=== PATIENT | female | born 1985 | race Caucasian/White ===

== ENCOUNTER → 2017-08-14 20:53 | Outpatient (CLI) | payer OTHER, MEDICAID, SELFPAY ==
[2017-08-14 13:12] VITALS: BP 125/85; BMI 41.9
[2017-08-14 22:32] LABS: Chlamydia Trachomatis by PCR Negative (Negative); Neisserai gonorrhoeae by PCR Negative (Negative); Probe Check PASS; Sample Adequacy Control PASS; Specimen Processing Control PASS
== END ==
PROVIDERS: Visit Provider Nurse Practitioner Women's Health
DX: Z11.3 Encounter for screening for infections with a predominantly sexual mode of transmission (principal); Z12.4 Encounter for screening for malignant neoplasm of cervix
CPT/HCPCS: 87070; 87205; 87491; 87591

== ENCOUNTER → 2017-09-12 10:32 | Outpatient (CLI) | payer OTHER, MEDICAID, SELFPAY ==
[2017-09-12 12:14] LABS: Follicle Stimulating Hormone 3.2 mIU/mL
[2017-09-14 03:07] LABS: DHEA Sulfate 120.5 ug/dL (84.8-378.0); HCV Quant. RNA PCR HCV Not Detected IU/mL (.)
[2017-09-14 09:21] LABS: HSV 2 IgG < 0.91 index (0.00-0.90); Testosterone Free 2.4 pg/mL (0.0-4.2)
[2017-09-15 01:09] LABS: Rapid Plasmin Reagin (RPR) NONREACTIVE (NONREACTIVE)
[2017-09-16 12:47] LABS: 17-Hydroxyprogesterone 23 ng/dL (.)
== END ==
PROVIDERS: Family Provider Nurse Practitioner Family; PCP Nurse Practitioner Family; Visit Provider Nurse Practitioner Women's Health
DX: N91.1 Secondary amenorrhea (principal); Z11.3 Encounter for screening for infections with a predominantly sexual mode of transmission; L68.0 Hirsutism
CPT/HCPCS: 82627; 83001; 83498; 84402; 86592; 86695; 86696; 87522; 82626

== ENCOUNTER 2017-11-16 11:22 | Day surgery (SDC) | payer MEDICAID, SELFPAY ==
--- NOTE | 2017-11-16 | FALS_PTH ---
PATIENT: BARRINGTON BEYER [place] [facility] [id number] AGE/SX: 32/F ROOM: RE11/16/[address]: Dr. Keren Ruiz MD : 1985 BED: DIS: 11/16/2017 SPEC #: [id number] RECD: 11/16/17 15:05 STATUS: MARLEE RERashmi #: [id number] NANCY: 11/16/17 00:[address]: Keren Ruiz DEPT: SURGICAL PATHOLOGY RECD BY: Carlos Rey ENTERED: 11/16/17 15:07 SP TYPE: FALL TUBES OTHR DR: Teri Silvestre, CLARIBELC Tissues: A - Labium, NOS B - Fallopian tube Procedures: Surgery Specimen Level II Surgery Specimen Level IV HEADER OPERATION: Laparoscopic salpingectomy, labioplasty PRE-OP DIAGNOSIS: Sterilization request; labial hypertrophy TISSUE SUBMITTED: A ? Bilateral labial tissue, B ? Bilateral fallopian tubes MICROSCOPIC DIAGNOSIS A. Bilateral labial tissue, excision: Minimal hyperkeratosis. No evidence of dysplasia. B. Right and left fallopian tubes, bilateral salpingectomies: Two complete segments of fallopian tubes with no pathologic change. Benign paratubal cysts. AM:kye 11/17/17 MICROSCOPIC DESCRIPTION Slides are reviewed. GROSS DESCRIPTION A - Received in fixative is one container labeled with the patient's name and designated bilateral labial tissue. The specimen consists of four irregular fragments of pink-martinez skin with attached reddish-martinez soft tissue ranging in size from 0.5 to 8.5 cm in greatest dimension. Serial sections do not reveal mass lesions. Disc Jockey sections are submitted in two cassettes. B - Received is one container labeled with the patient's name and designated bilateral fallopian tubes. One fallopian tube measures 3 cm in length and 0.5 cm in average diameter and contains a smooth, glistening paratubal cyst measuring 1 cm in greatest dimension. No fimbrial end is present. The other fallopian tube measures 6 cm in length and 0.5 cm in average diameter and contains a fimbrial end. Disc Jockey sections are submitted in two cassettes as follows: 1 ? smaller fallopian tube segment with paratubal cyst, 2 - the other fallopian tube with fimbrial end. / AM:kye 11/16/17 TC:5 CPT: 94502 x2, 13093
--- NOTE | 2017-11-16 06:33 | PCM.HPOB.BLA ---
- Problem List (1) Labial hypertrophy Status: Acute (2) Sterilization Status: Acute History and Physical Date of Admission: 11/16/17 Intake Vital Signs 09/12/17 Body Mass Index (BMI) 41.9 09/12/17 Blood Pressure 131/92 09/12/17 Height 4 ft 11.5 in 09/12/17 Weight: 209 lb 6 oz 09/12/17 Body Mass Index (BMI) 41.5 Intake Visit Reasons: SURGICAL CONSULT Chief Complaint: Surgery Consult Elevator Supervisor Required: No Is patient in pain?: No Allergies No Known Allergies Allergy (Unverified 09/12/17 09:34) Medications diltiazem 30 mg tablet 30 mg PO Q8H 08/14/17 [History Confirmed 09/12/17] levothyroxine 50 mcg tablet PO 08/14/17 [History Confirmed 09/12/17] medroxyprogesterone 10 mg tablet 10 mg PO QDAY #10 tab 08/14/17 [Rx Confirmed 09/12/17] montelukast 10 mg tablet 10 mg PO QHS 08/14/17 [History Confirmed 09/12/17] omeprazole 20 mg capsule,delayed release 20 mg PO ONCE 08/14/17 [History Confirmed 09/12/17] sertraline 50 mg tablet 50 mg PO QDAY 09/12/17 [History Confirmed 09/12/17] Is last menstrual period known: Yes Last Menstral Period: 09/10/17 Post menopausal: No Patient : No : No PFSH Medical History Anxiety and depression (Acute) Drug addiction in remission (Acute) SVT (supraventricular tachycardia) (Acute) Thyroid disorder (Acute) Surgical History delivery delivered (Acute) Family History Father Cancer Melanoma Social History Smoking Status: Never smoker alcohol intake: never substance use type: does not use caffeine: Yes what type of physical activity do you participate in: none seatbelt use: always do you feel safe at home: Yes additional social history: [facility] SURGICAL CONSULT: Details: BARRINGTON BEYER is a 32 year old who presents for vulvar discomfort due to excess skin. This has worsened over the years. she admits some swelling and worsening when she is walking and more active and she would like it removed. she also co dyspareunia with the extra skin and also internal. Female Reproductive History Last Menstral Period: 09/10/17 Pregancy History 5 Elective abortions Hx Para 4 Spontaneous abortions Hx # Term Pregnancies Ectopic pregnancies Hx # Pregnancies Multiple births # of living children Past Pregnancies Del. Date Name GA/Weeks Outcome Route Bth Weight Gen Labor Lgth Anesthesia Del Locatn Provider FOB Unknown 2001 Rosales Unknown 2003 Zechariah Unknown 2005 [place] Unknown 2009 Mala BLANCHARD Const Constitutional: Denies poor appetite, headache(s), fever(s), increased appetite, weight gain, weight loss or fatigue Cardio Card: Denies chest pain Resp Resp: Denies dyspnea or cough GI GI: Reports as per HPI; denies vomiting, nausea, abdominal pain or constipation : Reports as per HPI; denies urinary urgency, vaginal discharge, urinary frequency, vaginal odor, urinary incontinence, urinary hesitancy, difficulty urinating, painful urination or nipple discharge Skin Skin/Breast: Denies breast lump, breast pain, breast skin changes, nipple discharge or change in hair Exam Const General: cooperative, healthy appearing, comfortable, no acute distress, well developed Nutritional Appearance: average body habitus Orientation: alert HENMT Head: normal to inspection, normocephalic Neck Neck: normal visual inspection, trachea midline Thyroid: thyroid normal Resp Effort & Inspection: normal respiratory effort GI Inspection: normal to inspection, non-distended Palpation: soft, no hepatosplenomegaly General: bladder normal to palpation External Female Exam: normal external appearance (large amount of redundant bilateral labia majora tissue. ), normal appearance of the urethra Urethra: normal appearance of the urethra, normal palpation, no discharge Speculum Exam - Vagina: normal appearance of the vagina, normal vaginal discharge Speculum Exam - Cervix: normal appearance of the cervix, nontender Bimanual Exam- Vagina & Uterus: bladder normal to palpation, No cervical tenderness, normal bimanual exam, uterine size normal, uterine shape normal, uterine mobility normal, uterine consistency normal, normal cervical palpation, uterus non-tender Bimanual Exam- Adnexa, other: normal adnexae, adnexae mobile, no adnexal masses, pelvic support normal Pelvic Support: normal Skin General: no rashes or lesions noted Assessment & Plan Problems 1. Labial hypertrophy N90.60 2. Labial irritation N90.89 3. Request for sterilization Z30.2 Plan discussed with patient surgical option of labioplasty and sterilization. patient wants to proceed with labioplasty and laparoscopic bilateral salpingectomy. I discussed with her risks of bleeding, infection, dyspareunia, scarring, damage to bowel, bladder, or blood vessels. patient wishes to proceed. patient has been seen and no clinically relevant updates to the h and P were indicated
[2017-11-16 11:46] VITALS: BP 113/85; PULSE 85; RESP 16; TEMP 36.7; O2SAT 97; BMI 39.9
[2017-11-16 11:54] LABS: Hemoglobin 14.2 g/dl (12.0-15.0); Mean Corp Hgb Conc 33.8 g/gl (32-36); Mean Corpuscular Hgb 28.7 pg (27.0-32.0); Mean Corpuscular Volume 84.8 fL (81-99); Mean Platelet Vol. 10.1 fl (6.2-12.0); Platelet Count 212 K/mm3 (150-450); RBC Distribution Width CV 12.7 % (11.6-14.6); RBC Distribution Width SD 38.5 fl (35.1-43.9); Red Blood Count 4.95 M/mm3 (4.2-5.4)
[2017-11-16 11:55] LABS: Scan Indicated on CBC? Y/N NO
[2017-11-16 12:43] LABS: Internal QC Validated? YES +Cl - CLEAR BKGD; Pregnancy, Urine Negative Negative
[2017-11-16] MEDS: Bupivacaine 0.25% 30 ML Vial (14:36)
[2017-11-16] MEDS: Dibucaine 30 GM Tube 1 APPLIC (14:38)
[2017-11-16 14:52] VITALS: BP 113/85; BP 139/96; PULSE 82; RESP 16; TEMP 36.1; O2SAT 98
[2017-11-16 15:00] VITALS: BP 113/85; BP 130/92; PULSE 80; RESP 16; O2SAT 100
[2017-11-16 15:15] VITALS: BP 113/85; BP 131/96; PULSE 79; RESP 16; O2SAT 97
[2017-11-16 15:16] VITALS: BP 113/85; BP 131/96; PULSE 85; RESP 16; TEMP 36.2; O2SAT 95
--- NOTE | 2017-11-16 15:26 | PCM.DC ---
You will use the following diet at home:: No restrictions Your food should be the consistency of: Regular Discharge Activity: Return to Normal Activity, May not drive while taking narcotic pain medications. Return to work on:: 11/27/17 May resume sexual activity in: 6 weeks Weight Bearing Status: Full weight bearing Call your doctor if your incision/area has: Sudden Increased Bleeding, Increased Pain/ Swelling, Increased Redness, Foul Smelling Discharge Call your doctor if you observe: Fever of 101 or Higher, Chest pain Cleanse incision/area with: Soap & Water Additional Dressing/Incision Instructions:: ice pack to area, dibucaine cream Allergies/Adverse Reactions: Allergies No Known Allergies Allergy (Verified 11/09/17 09:45) Medications to take at Discharge diltiazem 30 mg tablet 120 mg PO DAILY 08/14/17 levothyroxine 50 mcg tablet 100 mcg PO DAILY 08/14/17 montelukast 10 mg tablet 10 mg PO DAILY 08/14/17 omeprazole 20 mg capsule,delayed release 40 mg PO ONCE 08/14/17 sertraline 50 mg tablet 50 mg PO QDAY 09/12/17 Biotin 10,000 mcg PO DAILY 11/09/17 Phentermine HCl 15 mg PO DAILY 11/09/17 Dibucaine 1 applic TOPICAL 4X/DAY PRN PRN #1 tube 11/16/17 Naproxen [Naprosyn] 250 - 500 mg PO Q8H PRN PRN #30 tab 11/16/17 Oxycodone HCl/Acetaminophen [Percocet 5-325] 2 tablet PO Q4H PRN PRN 7 Days #28 tablet 11/16/17 The following prescriptions were given: Oxycodone HCl/Acetaminophen [Percocet 5-325] 2 tablet PO Q4H PRN PRN 7 Days #28 tablet PRN Reason: Moderate-Severe pain Naproxen [Naprosyn] 250 - 500 mg PO Q8H PRN PRN #30 tab PRN Reason: MILD PAIN Dibucaine 1 applic TOPICAL 4X/DAY PRN PRN #1 tube PRN Reason: Pain Primary Care Physician: Teri Silvestre NP-C [Primary Care Provider] - Please Follow Up With: Keren Ruiz MD - 3-4 weeks
--- NOTE | 2017-11-16 16:00 | PCM.OPRPT ---
Problem List (1) Labial hypertrophy Status: Acute (2) Sterilization Status: Acute Report of Operation Date of Procedure: 11/16/17 Pre-Operative Diagnosis: labial hypertrophy dyspareunia sterilization Post-Operative Diagnosis: same Surgery/Procedure Performed:: labiaplasty and laparoscopic bilateral salpigectomy Description of Surgical Findings:: normal tubs ovaries excessive labial tissue instructional designer: Josy Larsen Type of Anesthesia:: General Special Medications: none Specimen's removed: labia tubes Drains: none Estimated Blood Loss (mL): 50 Fluids Replaced: crystalloid Description of Procedure: Was prepped and draped in normal sterile fashion after being placed under general anesthesia. Uterine manipulator was placed inside the uterus and then attention was paid to the abdominal portion of the procedure. The umbilicus was elevated and a 5 mm trocar was placed under direct visualization after a varies needle was entered into and confirmed to be intra-abdominal with a low opening pressure of less than 3 mmHg. Abdomen was insufflated with CO2 gas with a varies needle and then a left lower quadrant 5 mm port and a suprapubic alligator grasper was placed under direct visualization without complication. Bilateral fallopian tubes were elevated and transected across the mesosalpinx and they were removed without complication. Excellent hemostasis was noted. All instruments removed from the abdomen and port sites were closed with 3-0 Monocryl. Steri's were applied. She was then paid to the vaginal portion of the procedure. Uterine manipulator was removed and bilateral excess labial tissue was identified and transected starting out in the bilateral periclitoral area but leaving the entire clitoral ramon and catarrhal area intact to preserve nerve and sexual function. In the office today had been discussed with the patient which areas were of particular concern to her and these areas were removed. The patient also complained of significant extra tissue at the vaginal opening what was causing discomfort for her. 2 crown stitches were placed to improve perineal body integrity and support. Subcuticular closure was employed across the entire area after labial reduction was performed and excellent hemostasis was noted. Patient was awoken and taken recovery in stable condition Grafts/Implants Used: none - Complications none - Admit VTE Documentation VTE Present on Admission: No
[2017-11-16 16:56] VITALS: BP 113/85
== END 2017-11-16 17:04 | disposition home or self-care (01) ==
LOC: SDC 11:24 → AC 11:24
PROVIDERS: Family Provider Nurse Practitioner Family; PCP Nurse Practitioner Family; Visit Provider Obstetrics & Gynecology
PROC: (CPT 58661; principal; 2017-11-16 12:45)
DX: N90.60 Unspecified hypertrophy of vulva (principal); N90.89 Other specified noninflammatory disorders of vulva and perineum; Z30.2 Encounter for sterilization; N94.10 Unspecified dyspareunia; N83.8 Other noninflammatory disorders of ovary, fallopian tube and broad ligament; L85.9 Epidermal thickening, unspecified; K21.9 Gastro-esophageal reflux disease without esophagitis; J45.909 Unspecified asthma, uncomplicated; E07.9 Disorder of thyroid, unspecified
CPT/HCPCS: 56620; 58661; 81025; 85027; 86850; 86900; 88302; 88305; J7120; J2405

== ENCOUNTER → 2018-08-16 15:53 | Outpatient (CLI) | payer MEDICAID, SELFPAY ==
[2018-08-15 15:31] VITALS: BMI 41.9
== END ==
PROVIDERS: Family Provider Nurse Practitioner Family; PCP Nurse Practitioner Family; Referring Provider Obstetrics & Gynecology; Visit Provider Obstetrics & Gynecology
DX: N75.1 Abscess of Bartholin's gland (principal)
CPT/HCPCS: 87070; 87205

== ENCOUNTER 2018-10-16 07:25 | Day surgery (SDC) | payer MEDICAID, SELFPAY ==
[2018-10-04 13:10] VITALS: BMI 41.9
--- NOTE | 2018-10-04 15:13 | HP_ITS ---
Intake Vital Signs 10/04/18 Body Mass Index (BMI) 41.9 Intake Visit Reasons: CARPAL TUNNEL PAIN Allergies No Known Allergies Allergy (Verified 08/16/18 14:41) Medications diltiazem 30 mg tablet 120 mg PO DAILY 08/14/17 [History Confirmed 10/04/18] levothyroxine 50 mcg tablet 100 mcg PO DAILY 08/14/17 [History Confirmed 10/04/18] montelukast 10 mg tablet 10 mg PO DAILY 08/14/17 [History Confirmed 10/04/18] omeprazole 20 mg capsule,delayed release 40 mg PO ONCE 08/14/17 [History Confirmed 10/04/18] fenofibrate 50 mg capsule 50 mg PO DAILY 10/04/18 [History Confirmed 10/04/18] sertraline 100 mg tablet 100 mg PO DAILY 10/04/18 [History Confirmed 10/04/18] PFSH Medical History Anxiety and depression (Acute) Drug addiction in remission (Acute) SVT (supraventricular tachycardia) (Acute) Thyroid disorder (Acute) Surgical History delivery delivered (Acute) s/p labiaplasty (Acute ~11/16/17) Family History Father Cancer Melanoma Social History Smoking Status: Never smoker alcohol intake: never substance use type: does not use caffeine: Yes what type of physical activity do you participate in: none seatbelt use: always do you feel safe at home: Yes additional social history: [facility] CARPAL TUNNEL PAIN: Surgical H&P: Yes Details: Parts of this documentation were recorded by a scribe, this documentation accurately reflects the service provided and the decisions made by me, Zaheer Guardado DO 10/04/18 0753. BARRINGTON BEYER is a 33 year old F here today for b/l wrist carpal tunnel symptoms. States the injection was effective for a few months in the right then the pain returned. she has had 2 now in the right none in the left. Painful with ROM, increase in numbness/tingling wakes her up at night and has to shake it out. Is open to talking about open carpal tunnel release of the right wrist. Is also having pain/numbness in the left wrist with ROM and occasionally hears a popping would like discuss possible nerve study on the left wrist. Has tried night bracing for a few months and has continued to use the brace. Ortho Exam Right Wrist/Hand Skin/Wound: No Swelling, No Ecchymosis, Yes capillary refill normal Right Wrist: Yes Durken's Test, Tinel's and Phalen's Left Wrist/Hand Skin/Wound: No Swelling, No Ecchymosis, Yes capillary refill normal, No erythema Left Wrist: Yes Durken's Test, Yes Tinel's and Yes Phalen's Assessment & Plan Problems 1. Carpal tunnel syndrome of right wrist G56.01 2. Carpal tunnel syndrome of left wrist G56.02 Plan Reviewed the EMG of the right wrist and explained that at the time of the exam it was read as mild carpal tunnel syndrome but appears to have progressed . Educated that continuing to have the steroid injections into the wrist could cause tendon rupture. Recommend an Open carpal tunnel release for the right and at the time of the release can inject the left with a steroid injection. Patient in agreement with the surgery and injection. Educated about the surgical procedure and risks of possible damage to any nerves in the wrist. Will have a 1/2lb weight lifting restriction post surgery. Reviewed the pre-operative plans with the patient. Risks, benefits and alternatives of surgery reviewed including but no limited to risk of incisional hypersensitivity, pillar pain and continued symptomology nerve artery damage finger wrist stiffness and post-operative liftin restrictions. The patient understands all the risks and does wish to proceed with written consent. Patient made aware that our surgical schedular will contact her with a date. Follow up 2 weeks post operatively or sooner if pain, swelling, numbness or associated symptoms, or concerns develop. All questions answered. Patient in agreement of plan. Coding Level of Care Code Off vis,est,level 4 Diagnoses Carpal tunnel syndrome of right wrist G56.01 Carpal tunnel syndrome of left wrist G56.02
[2018-10-16 07:57] VITALS: BP 124/82; PULSE 73; RESP 14; TEMP 37.1; O2SAT 98; BMI 40.1
[2018-10-16] MEDS: Cefazolin 2 GM in 0.9% Normal Saline 100 ML IV (09:41)
[2018-10-16] MEDS: Bupiv/Epi 0.5% Mpf 30 ML Vial (09:54)
[2018-10-16] MEDS: MethylPREDNISolone Acetate 80 MG/ML Vial (10:04)
[2018-10-16] MEDS: Bupivacaine 0.5% PF 10 ML VIAL (10:04)
[2018-10-16 10:15] VITALS: BP 109/68; BP 124/82; PULSE 90; RESP 16; TEMP 36.7; O2SAT 93
--- NOTE | 2018-10-16 10:18 | DCINST_ITS ---
Discharge Diet: No Restrictions Additional Activity Instructions:: Ice and elevate operative extremity next 72 hours. Keep dressing on clean and dry for 48 hours then may remove and allow warm soapy water to rinse over incision but do not submerge until sutures are out. Then apply bandaid over incision and change daily. encourage finger range of motion. Not lift more than 1/2 pound. Allergies/Adverse Reactions: Allergies No Known Allergies Allergy (Verified 10/10/18 13:21) Medications to take at Discharge diltiazem 30 mg tablet 120 mg PO DAILY 08/14/17 levothyroxine 50 mcg tablet 100 mcg PO DAILY 08/14/17 montelukast 10 mg tablet 10 mg PO DAILY 08/14/17 omeprazole 20 mg capsule,delayed release 40 mg PO DAILY 08/14/17 fenofibrate 50 mg capsule 50 mg PO DAILY 10/04/18 sertraline 100 mg tablet 100 mg PO DAILY 10/04/18 Albuterol Inhaler [Ventolin Hfa (SP)] 1 - 2 puff INHALATION Q4H PRN PRN 10/10/18 Hydrocodone Bitart/Apap 5-325 [[place] 5MG-325MG] 1 - 2 tablet PO Q4H PRN PRN 5 Days #20 tablet 10/16/18 The following prescriptions were given: Hydrocodone Bitart/Apap 5-325 [[place] 5MG-325MG] 1 - 2 tablet PO Q4H PRN PRN 5 Days #20 tablet PRN Reason: Pain Primary Care Physician: Teri Silvestre NP-C [Primary Care Provider] - Test Results: Test results from this visit will be discussed in further detail at your follow- up appointment, if applicable. Please Follow Up With: Zaheer Guardado DO - 2 weeks
[2018-10-16 10:20] VITALS: BP 106/65; BP 124/82; PULSE 81; RESP 16; O2SAT 94
--- NOTE | 2018-10-16 10:20 | OP.PCM_ITS ---
Report of Operation Date of Procedure: 10/16/18 Description of Surgical Findings:: Preoperative diagnosis; bilateral carpal tunnel syndrome Postoperative diagnosis; same Procedure: Right open carpal tunnel release Left carpal tunnel injection Anesthesia: Local with MAC Tourniquet time; [10] minutes 250 mm Hg Complications: None Indication for procedure; This is a 33-year-old [female] with long-standing symptoms consistent with carpal tunnel syndrome the patient did have electrodiagnostic evidence of this and has failed conservative treatment. Risks benefits and alternatives were reviewed including risks of bleeding infection nerve artery tissue damage need for further surgery and continued pain and sym ptoms, hypersensitivity to scar and Pillar pain. Procedure; The patient was met in the preoperative holding area the operative extremity was identified by both patient and physician and was marked the patient was met by anesthesia and brought back to the operating room and transferred to the operating table in the supine position. Aanesthesia was started. A well-padded tourniquet was placed on the operative upper extremity. The patient was prepped and draped in the usual sterile fashion. A timeout was called to ensure the proper patient procedure and extremity were being contemplated. 0.5 percent Marcaine with epinephrine was injected into the incisional area. An Esmarch was used to exsanguinate the extremity. The tourniquet was inflated to 250 mmHg. A midline incision was made with a 15 blade scalpel between the thenar and hypothenar eminence. This was carried down through the skin and subcutaneous tissue. Gabrielle retractors were then used, a deep blade scalpel was used to make a deep incision in the palmar aponeurosis. The gabrielle retractors were then placed deep to this and the transverse carpal ligament was identified a perforation was made with a scalpel and a Littler sc issors were used to complete the release of the transverse carpal ligament distally under direct visualization with the tips facing ulnarly until the perivascular fat was reached. Then turning our attention proximally using a tension slide technique the proximal extent of the transverse carpal ligament was released . There was noted to be [hourglass configuration to the median nerve and hypertrophy of the transverse carpal ligament without other findings]. The wound was thoroughly irrigated and was closed with 4-0 prolene vertical mattress stitches. Dressing was applied in the form of xeroform 4 x 4, web roll and an grant wrap. Tourniquet was let down there is no intraoperative complications patient tolerated the procedure well The left carpal tunnel was prepped with alcohol and was injected with 20 mg of Depo-Medrol and 0.5 cc of 0.5% Marcaine plain and was transferred to the PACU. All counts were correct.
[2018-10-16 10:25] VITALS: BP 109/69; BP 124/82; PULSE 81; RESP 16; O2SAT 93
[2018-10-16 10:30] VITALS: BP 110/72; BP 124/82; PULSE 77; RESP 16; O2SAT 95
[2018-10-16 10:35] VITALS: BP 105/65; BP 124/82; PULSE 77; RESP 18; TEMP 36.4; O2SAT 96
== END 2018-10-16 10:56 | disposition home or self-care (01) ==
LOC: SDC 07:25 → AC 07:26
PROVIDERS: Family Provider Nurse Practitioner Family; PCP Nurse Practitioner Family; Referring Provider Orthopaedic Surgery
PROC: (CPT 64721; principal; 2018-10-16 09:00)
DX: G56.03 Carpal tunnel syndrome, bilateral upper limbs (principal); F41.9 Anxiety disorder, unspecified; F32.9 Major depressive disorder, single episode, unspecified; E07.9 Disorder of thyroid, unspecified; K21.9 Gastro-esophageal reflux disease without esophagitis; E78.00 Pure hypercholesterolemia, unspecified; J45.909 Unspecified asthma, uncomplicated; G47.33 Obstructive sleep apnea (adult) (pediatric); Z79.51 Long term (current) use of inhaled steroids; Z79.899 Other long term (current) drug therapy
CPT/HCPCS: 01810; 20605; 64721; J7120; J2405

== ENCOUNTER 2019-01-12 13:57 | Emergency (ER) | payer SELFPAY ==
[2019-01-12 13:57] VITALS: BP 130/79; PULSE 92; RESP 15; TEMP 36.6; O2SAT 100; BMI 40.0
--- NOTE | 2019-01-12 14:34 | CT_ITS ---
STUDY: CT ABDOMEN AND PELVIS WITH CONTRAST REASON FOR EXAM: Female, 33 years old. Abdominal pain with bloody bowel movements RADIATION DOSAGE (If Supplied By Facility): CTDIvol = ( 17.01 ) mGy, DLP = ( 1219.05 ) mGycm TECHNIQUE: Transaxial images were obtained from the dome of the diaphragm to the symphysis pubis without oral contrast. 100 IV Isovue 300 was administered. Sagittal and coronal images were reconstructed. Individualized dose optimization techniques were used for this CT. COMPARISON: None. FINDINGS: The visualized lung bases are unremarkable. The visualized portions of the heart are within normal limits. There is decreased attenuation of the liver consistent with steatosis. Normal gallbladder and extrahepatic biliary system. Normal spleen. Normal pancreas. Normal bilateral adrenal glands. Normal right kidney. Normal left kidney. Normal visualized stomach. Normal small intestine. There is diffuse wall thickening of the right, transverse and descending colon with mild pericolonic stranding. The appendix is visualized and appears normal. Normal abdominal aorta. Normal inferior vena cava. Normal retroperitoneum. Normal urinary bladder. There is heterogeneity of the uterus. Lower uterine segment cystic structures may represent nabothian cysts or adenomyosis. Normal abdominal wall. Normal osseous structures. CT/Abdomen/Pelvis W IV Cont ONLY IMPRESSION: 1. Long segment colon wall thickening with pericolonic stranding suggesting colitis, likely infectious colitis or inflammatory bowel disease. Electronically Signed: Shai Loomis MD at 16:21 EDT , Service support ,
[2019-01-12] MEDS: 0.9% Normal Saline 1,000 ML 1000 ML IV (14:53)
[2019-01-12 15:00] LABS: Absolute Lymphocyte Count 2.61 X10^3/ul (0.83-4.51); Absolute Neutrophil Count 3.5 X10^3/uL (2.0-7.7); Basophil# 0.01 X10^3/uL; Basophil% 0.1 % (0-1); Eosinophil# 0.17 X10^3/uL; Eosinophils% 2.5 % (0-5); Hematocrit 40.8 % (37-47); Hemoglobin 14.2 g/dl (12.0-15.0); Lymphocyte # 2.61 X10^3/ul (4.0); Lymphocyte % 37.9 % (19-41); Mean Corp Hgb Conc 34.8 g/gl (32-36); Mean Corpuscular Hgb 28.3 pg (27.0-32.0); Mean Corpuscular Volume 81.4 fL (81-99); Mean Platelet Vol. 10.2 fl (6.2-12.0); Monocyte# 0.58 X10^3/uL; Monocyte% 8.4 % (0-10); Neutrophil # 3.51 X10^3/uL (2.7-7.7); Platelet Count 225 K/mm3 (150-450); Red Blood Count 5.01 M/mm3 (4.2-5.4); White Blood Count 6.9 K/mm3 (4.4-11.0)
[2019-01-12 15:01] LABS: POSITIVE COUNT NO; POSITIVE DIFFERENTIAL NO; POSITIVE MORPHOLOGY NO
--- NOTE | 2019-01-12 15:05 | ED.DCSUM_ITS ---
History of Present Illness <Willem Monroy - Last Filed: 01/12/19 16:32> Informant: Patient Onset: Days Narrative: Patient presents to the ED with abdominal pain and diarrhea that started 5 days ago. She states that her abdominal pain is all upper abdominal. She states that it comes in waves. It will last for approximately 1 minute and describes it as feeling similar to contractions. She states it does radiate to her back. She was evaluated 2 days ago at another facility and diagnosed with urinary tract infection. Yesterday, she developed bright red blood in her stool. She has had 5 episodes of blood in her stool. She denies any fever, chills, nausea, vomiting, or urinary symptoms. She has no history of abdominal surgeries. <Jeanine Beltran - Last Filed: 01/12/19 16:37> Chief Complaint: Abd Pain Past Medical History <Willem Monroy - Last Filed: 01/12/19 16:32> Smoking Status: Never smoker <Madeline Beltranily - Last Filed: 01/12/19 16:37> - Allergies and Home Meds Allergies/Adverse Reactions: Allergies No Known Allergies Allergy (Verified 01/12/19 14:00) Primary Care Physician: Teri Silvestre NP-C [Primary Care Provider] - Review of Systems General: Denies: Chills, Fever, Sweats Eyes: Denies: Visual changes - bilaterally, Diplopia ENT: Denies: Rhinorrhea, Sore throat Cardiovascular: Denies: Chest pain, Palpitations Respiratory: Denies: Dyspnea, Cough, Dyspnea on exertion Gastrointestinal: Reports: Abdominal pain, Diarrhea, Hematochezia Genitourinary: Denies: Dysuria, Hematuria, Frequency Musculoskeletal: Denies: Back pain, Extremity Pain Skin: Denies: Rash, Wounds Neurological: Denies: Headache, Weakness, Numbness <Madeline Beltranily - Last Filed: 01/12/19 16:37> Physical Exam Vital Signs/Narrative: Vital Signs Temp Pulse Resp BP Pulse Ox 01/12/19 13:57 97.8 F 92 15 130/79 H 100 <Willem Monroy - Last Filed: 01/12/19 16:32> Vital Signs/Narrative: Vital Signs Temp Pulse Resp BP Pulse Ox 01/12/19 13:57 97.8 F 92 15 130/79 H 100 General: Well nourished, Well developed, No Acute Distress Head: Normocephalic, Atraumatic Eyes: Perrl, EOMI ENT: Moist mucous membranes, No rhinorrhea Neck: Supple, Nontender Cardiovascular: Regular rate, Regular rhythm, No murmurs Respiratory: No distress, CTA bilaterally, Chest nontender Abdomen: Soft, Nondistended, Normal bowel sounds, - - Upper abdominal tenderness to palpation Back: Nontender, Normal Inspection Extremities: Nontender, No edema Skin: Normal color, No rash Neurological: Alert, Oriented x3, Cranial nerves II-XII grossly intact, Normal Strength, Normal Sensation Psychological: Normal affect, Normal Mood <Jeanine Beltran - Last Filed: 01/12/19 16:37> Diagnostic/Tx/Re-eval - Medical Decision Making Patient presents with abdominal cramping and some bloody diarrhea. Screening labs obtained were unremarkable. CT does show evidence of infectious colitis. She has no history of inflammatory bowel disease. We are going to treat patient with Cipro and Flagyl. I do feel that she is safe for outpatient therapy. She was counseled concerning symptoms and reasons continue. <Willem Monroy - Last Filed: 01/12/19 16:32> - Medical Decision Making Patient presents to the ED with upper abdominal pain and diarrhea for the last 5 days. Starting yesterday, she did have episodes of bright red blood in her diarrhea. Upon arrival, she appears well and nontoxic. Vital signs stable. She had some upper abdominal tenderness to palpation with no rigidity, guarding, or rebound. Given that this is her third visit this week for the symptoms, comprehensive work-up was pursued. CBC, CMP, lipase, and urinalysis are fairly unremarkable. CT abdomen/pelvis with IV contrast indicates long segment colon wall thickening with pericolonic stranding suggesting colitis, likely infectious colitis or inflammatory bowel disease. At this time, I think it safe for the patient be discharged home. She will be placed on a course of Flagyl and ciprofloxacin. She was instructed to follow-up with her PCP. She was educated on signs/symptoms to return to the ED. She is provided discharge instructions. She is agreeable to plan. Disposition: Home stable Impression: Colitis <Jeanine Beltran - Last Filed: 01/12/19 16:37> ED Disposition <Willem Monroy - Last Filed: 01/12/19 16:32> <DevinJeanine - Last Filed: 01/12/19 16:37> - Plan for ED Patient: Diagnosis: Colitis Instructions: DIARRHEA, Bacterial (5y-Adult) Prescriptions: Ciprofloxacin [Cipro] 500 mg PO BID #14 tab Prescription Printed metroNIDAZOLE [Flagyl] 500 mg PO Q8H #21 tab Prescription Printed Hydrocodone Bitart/Apap 5-325 [[place] 5MG-325MG] 1 tab PO Q6H PRN PRN 3 Days #10 tab PRN Reason: Pain Prescription Printed Referrals: Teri Silvestre, RIKKI-C [Primary Care Provider] -
[2019-01-12 15:15] LABS: ALB/GLOB Ratio 0.9 RATIO (0.9-2.4); AST(SGOT) 28 U/L (15-37); Alanine Aminotransfer ALT/SGPT 45 U/L (13-56); Albumin, Serum 3.7 g/dL (3.2-5.0); Alkaline Phosphatase 69 U/L (45-117); Anion Gap 4 (5-15); BUN 7 mg/dL (7-18); BUN/Creat Ratio 11.3 RATIO (10-20); Calcium,Total 8.7 mg/dL (8.5-10.1); Chloride 106 mmol/L (98-107); Creatinine, Serum 0.62 mg/dL (0.55-1.02); EST Glomerular Filtration Rate 116 mL/min (>60); Est Glom Filt Rate - Afr Amer 141 mL/min (>60); Estimated Creatinine Clearance 181.65 ml/min; Globulin 4.2 g/dL (2.2-4.2); Glucose 86 mg/dL (74-106); Lipase 125 U/L (73-393); Potassium 3.8 mmol/L (3.5-5.1); Protein, Total 7.9 g/dL (6.4-8.2); Sodium Level 137 mmol/L (136-145)
[2019-01-12 16:03] LABS: Bacteria 0 SEEN /hpf (None Seen); Mucous, Urine 0 SEEN /hpf (<or=2+); Red Blood Cells-Urine 0 SEEN /hpf (0-5); White Blood Cells 0 SEEN /hpf (0-5)
[2019-01-12 16:04] LABS: Color, Urine Yellow (Yellow); Glucose, Dipstick Normal (Normal); Ketone-Dipstick Negative (Negative); Leukocyte Esterase-Dipstick Negative /ul (Negative); Nitrite-Dipstick Negative (Negative); Occult Blood-Urine Negative /ul (Negative); Protein-Dipstick Negative (Negative); Urine Bilirubin Dipstick Negative (Negative); Urine Clarity Clear (Clear); Urine Urobilinogen Normal (Normal)
[2019-01-12 16:10] LABS: Squamous Epithelial Cells - UA 0-5 SEEN /hpf (5-10)
[2019-01-12] MEDS: metroNIDAZOLE 500 MG Tablet PO (17:05)
[2019-01-12] MEDS: Ciprofloxacin 500 MG Tablet PO (17:05)
[2019-01-12 17:06] VITALS: BP 128/91; PULSE 74; RESP 18; O2SAT 100
== END 2019-01-12 17:15 | disposition home or self-care (01) ==
PROVIDERS: Emergency Provider Physician Assistant; Family Provider Nurse Practitioner Family; PCP Nurse Practitioner Family
DX: K52.9 Noninfective gastroenteritis and colitis, unspecified (principal)
CPT/HCPCS: 74177; 80053; 81001; 83690; 85025; 96360; 99284; J7030; Q9967; A4216

== ENCOUNTER 2019-03-12 05:49 | Day surgery (SDC) | payer MEDICAID, SELFPAY ==
[2019-02-27 15:49] VITALS: BMI 40.0
[2019-03-12] VITALS (7 sets, daily range): BP systolic 87–128; BP diastolic 57–77; PULSE 75–84; RESP 16–18; TEMP 36.5; O2SAT 96–100; BMI 40.9
[2019-03-12] MEDS: Lactated Ringers 1,000 ML 100 ML IV (06:22)
[2019-03-12] MEDS: Cefazolin 2 GM in 0.9% Normal Saline 100 ML IV (07:24)
--- NOTE | 2019-03-12 07:32 | HP.PCM_ITS ---
History and Physical Date of Admission: 03/12/19 Intake Vital Signs 02/27/19 Body Mass Index (BMI) 40.0 Intake Visit Reasons: Romelia MATUTE Chief Complaint: Surgery Consult Allergies No Known Allergies Allergy (Verified 01/12/19 14:00) Medications diltiazem 30 mg tablet 120 mg PO DAILY 08/14/17 [History Confirmed 02/27/19] levothyroxine 50 mcg tablet 100 mcg PO DAILY 08/14/17 [History Confirmed 02/27/19] montelukast 10 mg tablet 10 mg PO DAILY 08/14/17 [History Confirmed 02/27/19] omeprazole 20 mg capsule,delayed release 40 mg PO DAILY 08/14/17 [History Confirmed 02/27/19] fenofibrate 50 mg capsule 50 mg PO DAILY 10/04/18 [History Confirmed 02/27/19] sertraline 100 mg tablet 100 mg PO DAILY 10/04/18 [History Confirmed 02/27/19] Albuterol Inhaler [Ventolin Hfa (SP)] 1 - 2 puff INHALATION Q4H PRN PRN 10/10/18 [History Confirmed 02/27/19] metroNIDAZOLE [Flagyl] 500 mg PO Q8H #21 tab 01/12/19 [Rx Confirmed 02/27/19] PFSH Medical History (Updated 01/13/19 @ 00:00 by Ethel Broussard) Anxiety and depression (Acute) Drug addiction in remission (Acute) SVT (supraventricular tachycardia) (Acute) Thyroid disorder (Acute) Surgical History (Updated 10/16/18 @ 10:20 by Zaheer Guardado DO) delivery delivered (Acute) s/p labiaplasty (Acute ~11/16/17) Family History (Updated 08/14/17 @ 13:16 by Amarilis Mancera) Father Cancer Melanoma Social History (Updated 02/27/19 @ 16:38 by Zaheer Guardado DO) Smoking Status: Never smoker alcohol intake: never substance use type: does not use caffeine: Yes what type of physical activity do you participate in: none seatbelt use: always do you feel safe at home: Yes additional social history: [facility] LFrankie HAND : Details: Parts of this documentation were recorded by a scribe, this documentation accurately reflects the service provided and the decisions made by , Zaheer Guardado DO 02/27/19 0754. BARRINGTON BEYER is a 33 year old F here today for left wrist. Patient states the carpal tunnel injections she had on 10/16/18 which she states was effective for about 3 months and states her pain/numbness and tingling returned about 1 month ago and she wants to discuss surgical release. ROS Const Reports system reviewed and no additional complaints, except as docu Eyes Reports system reviewed and no additional complaints, except as docu ENT Reports system reviewed and no additional complaints, except as docu Card Reports system reviewed and no additional complaints, except as docu Resp Reports system reviewed and no additional complaints, except as docu GI Reports system reviewed and no additional complaints, except as docu Musc Reports system reviewed and no additional complaints, except as docu, Reports as per HPI Skin/Breast Reports system reviewed and no additional complaints, except as docu Neuro Yes system reviewed and no additional complaints, except as docu Psych Reports system reviewed and no additional complaints, except as docu Endo Reports system reviewed and no additional complaints, except as docu Moshe/Lymph Reports system reviewed and no additional complaints, except as docu Aller/Immun Reports system reviewed and no additional complaints, except as docu Ortho Exam Right Wrist/Hand Skin/Wound: No Swelling, No Ecchymosis Left Wrist/Hand Skin/Wound: No Swelling, No Ecchymosis, Yes nail intact, Yes capillary refill normal, No erythema Left Wrist: Yes Durken's Test and Yes Tinel's WRIST: neg hyperflexion at the elbow Left Elbow ELBOW: Negative hyperflexion and direct compression of the ulnar nerve Assessment & Plan Problems 1. Left carpal tunnel syndrome G56.02 Plan Explained that she has clinical signs of carpal tunnel and she has had a release of the right already with success and symptoms are consistent with this other side. Options are EMG or release since she has failed the bracing at night and nsaids have not given relief. Reviewed the pre-operative plans with the patient. Risks and benefits of the procedure were fully explained, including but not limited to infection, neurovascular injury, continued pain, arthritis, stiffness, need for further surgery, re-injury, DVT, PE, general risks of anesthesia, and loss of limb or life. The patient understands all the risks and does wish to proceed with written consent. Follow up post op or sooner if pain, swelling, numbness or associated symptoms, or concerns develop. All questions answered. Patient in agreement of plan. Coding Level of Care Code Off vis,est,level 3 Diagnoses Left carpal tunnel syndrome G56.02 I have re-examined the patient. There are no clinical changes since date of exam
[2019-03-12] MEDS: Bupiv/Epi 0.5% Mpf 30 ML Vial (07:48)
--- NOTE | 2019-03-12 07:48 | DCINST_ITS ---
Discharge Diet: No Restrictions Call your doctor if you observe: Shortness of breath, Chest pain Additional Instructions: Ice and elevate operative extremity next 72 hours. Keep dressing on clean and dry for 48 hours then may remove and allow warm soapy water to rinse over incision but do not submerge until sutures are out. Then apply bandaid over incision and change daily. encourage finger range of motion. Not lift more than 1/2 pound. Allergies/Adverse Reactions: Allergies No Known Allergies Allergy (Verified 03/12/19 06:03) Medications to take at Discharge diltiazem 30 mg tablet 120 mg PO DAILY 08/14/17 levothyroxine 50 mcg tablet 100 mcg PO DAILY 08/14/17 montelukast 10 mg tablet 10 mg PO DAILY 08/14/17 omeprazole 20 mg capsule,delayed release 40 mg PO DAILY 08/14/17 fenofibrate 50 mg capsule 50 mg PO DAILY 10/04/18 sertraline 100 mg tablet 100 mg PO DAILY 10/04/18 Albuterol Inhaler [Ventolin Hfa (SP)] 1 - 2 puff INHALATION Q4H PRN PRN 10/10/18 Primary Care Physician: Teri Silvestre NP-C [Primary Care Provider] - Test Results: Test results from this visit will be discussed in further detail at your follow- up appointment, if applicable. Please Follow Up With: Zaheer Guardado DO - 2 weeks
--- NOTE | 2019-03-12 07:51 | PCM.OPRPT ---
Report of Operation Date of Procedure: 03/12/19 Description of Surgical Findings:: Preoperative diagnosis; left carpal tunnel syndrome Postoperative diagnosis; same Procedure: Left open carpal tunnel release Anesthesia: Local with MAC Tourniquet time; 10 minutes 250 mm Hg Complications: None Indication for procedure; This is a 33-year-old female with long-standing symptoms consistent with carpal tunnel syndrome the patient did have electrodiagnostic evidence of this and has failed conservative treatment. Risks benefits and alternatives were reviewed including risks of bleeding infection nerve artery tissue damage need for further surgery and continued pain and symptoms, hypersensitivity to scar and Pillar pain. Procedure; The patient was met in the preoperative holding area the operative extremity was identified by both patient and physician and was marked the patient was met by anesthesia and brought back to the operating room and transferred to the operating table in the supine position. Aanesthesia was started. A well-padded tourniquet was placed on the operative upper extremity. The patient was prepped and draped in the usual sterile fashion. A timeout was called to ensure the proper patient procedure and extremity were being contemplated. 0.5 percent Marcaine with epinephrine was injected into the incisional area. An Esmarch was used to exsanguinate the extremity. The tourniquet was inflated to 250 mmHg. A midline incision was made with a 15 blade scalpel between the thenar and hypothenar eminence. This was carried down through the skin and subcutaneous tissue. Gabrielle retractors were then used, a deep blade scalpel was used to make a deep incision in the palmar aponeurosis. The gabrielle retractors were then placed deep to this and the transverse carpal ligament was identified a perforation was made with a scalpel and a Littler scissors were used to complete the release of the transverse carpal ligament distally under direct visualization with the tips facing ulnarly until the perivascular fat was reached. Then turning our attention proximally using a tension slide technique the proximal extent of the transverse carpal ligament was released . There was noted to be hourglass configuration to the median nerve and hypertrophy of the transverse carpal ligament without other findings. The wound was thoroughly irrigated and was closed with 4-0 prolene vertical mattress stitches. Dressing was applied in the form of xeroform 4 x 4, web roll and an grant wrap. Tourniquet was let down there is no intraoperative complications patient tolerated the procedure well and was transferred to the PACU. All counts were correct.
== END 2019-03-12 08:57 | disposition home or self-care (01) ==
LOC: SDC 05:49 → AC 05:51
PROVIDERS: Family Provider Nurse Practitioner Family; PCP Nurse Practitioner Family; Referring Provider Orthopaedic Surgery; Visit Provider Orthopaedic Surgery
PROC: (CPT 64721; principal; 2019-03-12 07:15)
DX: G56.02 Carpal tunnel syndrome, left upper limb (principal); J45.909 Unspecified asthma, uncomplicated; K21.9 Gastro-esophageal reflux disease without esophagitis; E78.00 Pure hypercholesterolemia, unspecified
CPT/HCPCS: 01810; 64721; J7120; A4216

== ENCOUNTER → 2019-04-04 15:18 | Outpatient (CLI) | payer MEDICAID, SELFPAY ==
[2019-04-04 15:04] VITALS: BMI 40.9
[2019-04-04 15:45] LABS: Absolute Lymphocyte Count 2.39 X10^3/uL (0.83-4.51); Absolute Neutrophil Count 3.1 X10^3/uL (2.0-7.7); Basophil# 0.03 X10^3/uL; Basophil% 0.5 % (0-1); Eosinophil# 0.17 X10^3/uL; Eosinophils% 2.8 % (0-5); Hematocrit 43.3 % (37-47); Hemoglobin 14.7 g/dL (12.0-15.0); Lymphocyte # 2.39 X10^3/ul (4.0); Lymphocyte % 38.9 % (19-41); Mean Corp Hgb Conc 33.9 g/dL (32-36); Mean Corpuscular Hgb 28.8 pg (27.0-32.0); Mean Corpuscular Volume 84.9 fL (81-99); Monocyte# 0.49 X10^3/uL; NRBC Flagged by Analyzer 0 % (0-5); Neutrophil # 3.06 X10^3/uL (2.7-7.7); Neutrophil % 49.6 % (47-70); Platelet Count 215 K/mm3 (150-450); RBC Distribution Width CV 11.9 % (11.6-14.6); RBC Distribution Width SD 36.4 fl (35.1-43.9); White Blood Count 6.2 K/mm3 (4.4-11.0)
[2019-04-04 16:17] LABS: Thyroid Stim Hormone (TSH) 9.65 uIU/mL (0.358-3.74)
== END ==
PROVIDERS: Family Provider Nurse Practitioner Family; PCP Nurse Practitioner Family; Referring Provider Obstetrics & Gynecology; Visit Provider Obstetrics & Gynecology
DX: N93.9 Abnormal uterine and vaginal bleeding, unspecified (principal)
CPT/HCPCS: 36415; 84443; 85025

== ENCOUNTER → 2019-04-11 14:22 | Outpatient (CLI) | payer MEDICAID, SELFPAY ==
[2019-04-04 16:20] VITALS: BMI 40.9
[2019-04-11 15:03] LABS: T4 Free Direct 0.89 ng/dL (0.76-1.46)
== END ==
PROVIDERS: Family Provider Nurse Practitioner Family; PCP Nurse Practitioner Family; Referring Provider Obstetrics & Gynecology; Visit Provider Obstetrics & Gynecology
DX: N93.9 Abnormal uterine and vaginal bleeding, unspecified (principal)
CPT/HCPCS: 36415; 84439

== ENCOUNTER 2019-04-16 05:42 | Day surgery (SDC) | payer MEDICAID, SELFPAY ==
[2019-04-04 15:04] VITALS: BMI 40.9
[2019-04-04 16:20] VITALS: BMI 40.9
--- NOTE | 2019-04-10 22:23 | HP.PCM_ITS ---
- Problem List (1) Abnormal uterine bleeding Status: Acute Comment: cbc, thyroid testing, pelvic us, plan LAVH bs cysto (2) Dyspareunia Status: Acute Comment: likely secondary to adenomyosis, check pelvic us and plan lavh bs cysto (3) Labial hypertrophy Status: Acute (4) Sterilization Status: Acute History and Physical Date of Admission: 04/16/19 Intake Vital Signs 04/04/19 Body Mass Index (BMI) 40.9 04/04/19 Height 4 ft 11.5 in 04/04/19 Weight: 202 lb 04/04/19 Body Mass Index (BMI) 40.1 04/04/19 Blood Pressure 116/72 Intake Visit Reasons: CONSULT FOR HYSTERECTOMY Chief Complaint: hyst consult Cooker Helper Required: No Is patient in pain?: No Allergies No Known Allergies Allergy (Verified 04/04/19 15:03) Medications diltiazem 30 mg tablet 120 mg PO DAILY 08/14/17 [History Confirmed 04/04/19] levothyroxine 50 mcg tablet 100 mcg PO DAILY 08/14/17 [History Confirmed 04/04/19] montelukast 10 mg tablet 10 mg PO DAILY 08/14/17 [History Confirmed 04/04/19] omeprazole 20 mg capsule,delayed release 40 mg PO DAILY 08/14/17 [History Confirmed 04/04/19] fenofibrate 50 mg capsule 50 mg PO DAILY 10/04/18 [History Confirmed 03/05/19] sertraline 100 mg tablet 100 mg PO DAILY 10/04/18 [History Confirmed 04/04/19] Albuterol Inhaler [Ventolin Hfa (SP)] 1 - 2 puff INHALATION Q4H PRN PRN 10/10/18 [History Confirmed 04/04/19] Is last menstrual period known: No Post menopausal: No Patient : No : No PFSH Medical History Anxiety and depression (Acute) Drug addiction in remission (Acute) SVT (supraventricular tachycardia) (Acute) Thyroid disorder (Acute) Surgical History delivery delivered (Acute) s/p labiaplasty (Acute ~11/16/17) Family History Father Cancer Melanoma Social History (Updated 04/05/19 @ 23:02 by Keren Ruiz MD) Smoking Status: Never smoker alcohol intake: never substance use type: does not use caffeine: Yes what type of physical activity do you participate in: none seatbelt use: always do you feel safe at home: Yes additional social history: [facility] HPI CONSULT FOR HYSTERECTOMY: Details: BARRINGTON BEYER is a 33 year old who presents for fu of dyspareunia and AUB. she is having pain with intercourse deep every time and has heavy, painful menses with pelvic pressure and discomfort. she has failed medical management in the past. she declines an iud or hormonal intervention at this time. Female Reproductive History Questions: Metorrhagia: Yes, Sexually active: Yes, Dyspareunia: Yes, PCB: No Menopausal Symptoms: No hot flashes, No night sweats, No weight change, No mood changes, No difficulty concentrating, No sleep problems, Yes change in libido Pregancy History 5 Elective abortions Hx Para 4 Spontaneous abortions Hx # Term Pregnancies Ectopic pregnancies Hx # Pregnancies Multiple births # of living children Past Pregnancies Del. Date Name GA/Weeks Outcome Route Bth Weight Infant Gen Labor Lgth Anesthesia Del Locatn Provider FOB Unknown 2001 Rosales Unknown 2003 Zechariah Unknown 2005 [place] Unknown 2009 Mala BLANCHARD Const Constitutional: Denies night sweats ENT ENT: Denies dry mouth : Reports as per HPI; denies difficulty urinating, painful urination, blood in urine, hot flashes, nipple discharge, pelvic pain, urinary frequency, urinary incontinence, urinary hesitancy, urinary urgency, vaginal discharge, vaginal dryness, vaginal odor, vaginal itching or other Skin Skin/Breast: Denies hair loss, change in hair, dry skin, breast lump, breast pain, breast skin changes or nipple discharge Psych Psych: Reports change in sex drive; denies difficulty concentrating Exam Const General: cooperative, healthy appearing, comfortable, no acute distress, well developed Orientation: alert [facility] Head: normal to inspection, normocephalic Ears: hearing grossly normal bilaterally, external ears normal Nose: external nose normal, nares normal Face and sinus: normal facial exam Neck Neck: normal visual inspection, no lymphadenopathy, trachea midline Thyroid: thyroid normal Resp Effort & Inspection: normal respiratory effort Musc Other: gross motor intact no deficits, full bilateral strength Skin General: no rashes or lesions noted Neuro Motor: muscle tone normal throughout Assessment & Plan Problems 1. Abnormal uterine bleeding N93.9 cbc, thyroid testing, pelvic us, plan LAVH bs cysto 2. Dyspareunia likely secondary to adenomyosis, check pelvic us and plan lavh bs cysto Plan Problem list updated and treatment plans were reviewed with the patient and relevant educational handouts given. See problem list details for specific plan information. After discussing the patient's diagnosis and treatment plan options, patient wishes to proceed with surgical management. I have discussed with the patient the risks, benefits, and alternatives of the procedure which include but are not limited to risks of anesthesia, bleeding, infection, possible damage to bowel, bladder, or surrounding vasculature which could lead to additional surgery to evaluate any complications. Patient agrees to procedure and wishes to proceed. ACOG/uptodate references given for additional information regarding procedure. Orders Orders: Thyroid Stim Hormone (TSH) 04/04/19 N93.9 CBC W/Diff, Automated 04/04/19 N93.9 Coding Level of Care Code Off vis,est,level 4 Diagnoses Abnormal uterine bleeding N93.9 Dyspareunia
[2019-04-16] VITALS (16 sets, daily range): BP systolic 100–126; BP diastolic 58–88; PULSE 76–95; RESP 16–18; TEMP 36.3–37.1; O2SAT 97–100; BMI 40.0; BMI 40.7
--- NOTE | 2019-04-16 | HYST_PTH ---
PATIENT: BARRINGTON BEYER [place] [facility] [id number] AGE/SX: 33/F ROOM: RE04/16/[address]: Dr. Keren Ruiz MD : 1985 BED: DIS: 04/17/2019 SPEC #: [id number] RECD: 04/16/19 14:17 STATUS: MARLEE DARREN #: [id number] NANCY: 04/16/19 00:[address]: Keren Ruiz DEPT: SURGICAL PATHOLOGY RECD BY: Carlos Rey ENTERED: 04/16/19 14:17 SP TYPE: HYSTERECT OTHR DR: Teri Silvestre, WAREHOUSE CHECKER-C Tissues: Uterus, NOS Procedures: Surgery Specimen Level V HEADER OPERATION: Hysterectomy, LAVH, cysto PRE-OP DIAGNOSIS: Abnormal uterine bleeding; dyspareunia TISSUE SUBMITTED: Uterus MICROSCOPIC DIAGNOSIS Uterus, hysterectomy: Cervix - chronic cystic cervicitis. Endometrium - proliferative endometrium. Myometrium - an intramural leiomyoma (1.3 cm in diameter). - Focal adenomyosis. REAGAN:kye 04/17/19 MICROSCOPIC DESCRIPTION Slides are reviewed. GROSS DESCRIPTION Received in fixative is one container labeled with the patient's name and designated uterus. The specimen consists of a hysterectomy specimen consisting of uterus with cervix weighing 142 gm and measures 11.5 x 6 x 4.5 cm. The serosal surface is martinez and glistening. The ectocervical mucosa is unremarkable. The external os is oval and patulous in contour. The endocervical canal measures 4.5 cm in length and the endocervical mucosa is martinez, glistening and unremarkable. Sections of the cervix reveal multiple cysts filled with mucoid material. Numerous cysts are also noted at the level of internal os. The endometrial cavity measures 4.5 cm in length and 3 cm in width. The endometrium is congested without mass lesion and measures 0.1 cm in thickness. The uterine wall measures up to 2.5 cm in thickness. Sections of the uterine wall reveal one nodular mass measuring 1.3 cm in diameter. Sections of this mass reveal martinez whorled cut surfaces without areas of hemorrhage, necrosis or cystic degeneration. Cage Tender sections are submitted in nine cassettes as follows: 1 - anterior cervix, 2 - posterior cervix, 3 & 4 - anterior uterine wall, 5 & 6 - posterior uterine wall, 7 & 8 - cervix with the mucoid cysts, 9??nodular mass. / REAGAN:kye 04/16/19 TC:1 CPT: 18453
[2019-04-16] MEDS: dexAMETHasone 10 MG/ML Vial 8 MG IV (06:25)
[2019-04-16] MEDS: Ondansetron 4 MG/2 ML Vial IV (06:25)
[2019-04-16] MEDS: Phenazopyridine 95 MG Tablet 190 MG PO (06:25)
[2019-04-16] MEDS: Lactated Ringers 1,000 ML 70 ML IV ×2 (06:25→23:53)
[2019-04-16] MEDS: Scopolamine 1mg/72hr Patch 1 PATCH TRANSDERM. (06:39)
[2019-04-16] MEDS: Acetaminophen 500 MG Tablet 1000 MG PO ×3 (06:41→23:49)
[2019-04-16 06:42] LABS: Hematocrit 40.4 % (37-47); Hemoglobin 13.6 g/dL (12.0-15.0); Mean Corp Hgb Conc 33.7 g/dL (32-36); Mean Corpuscular Hgb 28.5 pg (27.0-32.0); Mean Corpuscular Volume 84.7 fL (81-99); Mean Platelet Vol. 10.1 fl (6.2-12.0); Platelet Count 191 K/mm3 (150-450); RBC Distribution Width CV 12.3 % (11.6-14.6); RBC Distribution Width SD 37.9 fl (35.1-43.9); Red Blood Count 4.77 M/mm3 (4.2-5.4); White Blood Count 6.3 K/mm3 (4.4-11.0)
[2019-04-16] MEDS: Gabapentin 600 MG Tablet PO (06:42)
[2019-04-16] MEDS: Magnesium Sulfate 4gm/100mL 4 GM/100 ML IV.SOLN. IV (06:42)
[2019-04-16] MEDS: Enoxaparin 40 MG/0.4 ML Syringe SC (06:42)
[2019-04-16] MEDS: Lactated Ringers 1,000 ML 40 ML IV (06:45)
[2019-04-16 06:46] LABS: Bedside Glucose 87 mg/dL (70-110)
[2019-04-16] MEDS: Bupivacaine 0.25% 30 ML Vial (06:55)
[2019-04-16] MEDS: Celecoxib 200 MG Capsule 400 MG PO (07:06)
--- NOTE | 2019-04-16 07:29 | PCM.OPRPT ---
Problem List (1) Abnormal uterine bleeding Status: Acute Comment: cbc, thyroid testing, pelvic us, plan LAVH bs cysto (2) Dyspareunia Status: Acute Comment: likely secondary to adenomyosis, check pelvic us and plan lavh bs cysto (3) Labial hypertrophy Status: Acute (4) Sterilization Status: Acute Report of Operation Date of Procedure: 04/16/19 Pre-Operative Diagnosis: aub, dyspareunia Post-Operative Diagnosis: extensive scar tissue Surgery/Procedure Performed:: lavh cysto Description of Surgical Findings:: extensive vesicouterine scar tissue, multicystic bilateral ovaries. rayon coner: Sarah Beth Pressley Type of Anesthesia:: General Special Medications: surgicell Specimen's removed: uterus Drains: joya Estimated Blood Loss (mL): 100 Fluids Replaced: crystalloid Description of Procedure: Patient received preoperative antibiotics and SCDs were on preoperatively. Patient was taken back to the operating room and placed in the dorsal lithotomy position. General anesthesia was induced and patient was prepped and draped in normal sterile fashion. Uterine manipulator was placed inside the uterus and Joya catheter placed in the bladder. The umbilicus was grasped with towel clamps and an intraumbilical incision was made after injecting with quarter percent Marcaine and a Veress needle entered into the abdomen confirmed to be intra-abdominal with a low opening pressure. Abdomen was insufflated with CO2 gas and the Veress needle removed and the 5 mm trocar was placed under direct visualization without complication. Right and left lower quadrants were transilluminated and injected with quarter percent Marcaine and 5 mm ports placed under direct visualization. Pelvis was well visualized see operative findings for additional information. severe scar tissue was noted in the uterus and bladder. This was dissected out bluntly sharply and with the monopolar scissors. Hydrodissection was also utilized. Proximal a 45 minutes was spent in adhesio lysis. The broad ligament was opened up by transecting the round ligament bilaterally and skeletonizing the uterine vessels bilaterally and creating a bladder flap using the LigaSure device. The uterine arteries were transected bilaterally with good visualization of the bladder and the ureters were seen to be inferior lateral to the operative area. Attention was then paid to the vaginal portion of the procedure and the cervix was grasped with Art clamps and circumferentially injected with dilute vasopressin. A circumferential incision was made and the vaginal mucosa was mobilized off posteriorly and the cul-de-sac entered into sharply and a longneck speculum placed. The anterior cul-de-sac was then identified and entered into sharply. The uterosacral ligaments were clamped cut and suture ligated with 0 Monocryl bilaterally followed by the cardinal ligaments which were clamped cut and suture ligated bilaterally with 0 Monocryl. The uterus serially descended and was removed without difficulty with minimal morcellation. Pelvic sidewall pedicles were checked and noted to have excellent hemostasis. The vaginal mucosa was reapproximated incorporating the posterior peritoneum. This was reapproximated using 0 Vicryl [id number] sutures. Excellent hemostasis was noted. The cystoscopy was then performed and bilateral ureteral strong spray was noted and the bladder was noted to have no abnormality or lesions seen. Joya catheter was replaced and then attention paid to the abdominal portion of the procedure again. The pelvis and cul-de-sac was well visualized and no significant active bleeding noted but some raw areas were seen on the peritoneum and therefore surgicel was applied. Pressure was taken down and the areas visualized and noted of excellent hemostasis. All ports were removed under direct visualization without complication and the abdomen was desufflated of air. The instruments removed from the abdomen and the vagina vaginal sweep was negative. Port sites on the abdomen were closed with 4-0 Monocryl interrupted sutures and Steri's and windows were applied. She was awoken and taken recovery in stable condition. Grafts/Implants Used: none - Complications none - Admit VTE Documentation VTE Present on Admission: No VTE Mechan Device Prophylaxis: SCD's VTE Pharm Prophylaxis ordered?: Yes Multi Select Codes - Urinary/Genital Urinary/Genital CPT Codes: 44450 Cystoscopy, 10502 LAVH <250gr uterus, 92320 Lysis of adhesions, laproscopic
[2019-04-16] MEDS: Cefazolin 2 GM in 0.9% Normal Saline 100 ML IV (07:45)
[2019-04-16] MEDS: Vasopressin 20 UNITS/ML Vial (08:55)
[2019-04-16] MEDS: Ketorolac 30 MG/ML Syringe IV ×2 (18:07→23:50)
[2019-04-16] MEDS: 0.9% NaCl Peripheral Flush Adult/Peds IV (18:10)
[2019-04-16] MEDS: Docusate Sodium 100 MG Capsule PO (20:32)
[2019-04-16] MEDS: Ondansetron ODT 4 MG Tablet PO (20:33)
[2019-04-17 02:00] VITALS: BP 111/55; PULSE 97; RESP 16; TEMP 36.8; O2SAT 96
[2019-04-17] MEDS: Acetaminophen 500 MG Tablet 1000 MG PO (05:13)
[2019-04-17] MEDS: Ketorolac 30 MG/ML Syringe IV (05:13)
[2019-04-17] MEDS: 0.9% NaCl Peripheral Flush Adult/Peds IV (05:13)
[2019-04-17 06:19] LABS: Hematocrit 38.1 % (37-47); Hemoglobin 12.8 g/dL (12.0-15.0); Mean Corp Hgb Conc 33.6 g/dL (32-36); Mean Corpuscular Volume 86.2 fL (81-99); Mean Platelet Vol. 10.1 fl (6.2-12.0); Platelet Count 209 K/mm3 (150-450); RBC Distribution Width CV 12.2 % (11.6-14.6); RBC Distribution Width SD 38.5 fl (35.1-43.9); Red Blood Count 4.42 M/mm3 (4.2-5.4); White Blood Count 11.1 K/mm3 (4.4-11.0)
[2019-04-17 07:58] VITALS: BP 101/42; PULSE 76; RESP 18; TEMP 36.7; O2SAT 95
--- NOTE | 2019-04-17 08:01 | PCM.PN.OB ---
Subjective: Ambulating, voiding without difficulty. Tolerating po meals. States pain is well controlled. - Physical Exam General: Alert, Oriented x3 Abdomen: Soft, Non-Distended, - - Minimal tenderness with exam. Dressing dry and intact Vital Signs Temp Pulse Resp BP Pulse Ox 98.1 F 76 18 101/42 L 95 04/17/19 07:58 04/17/19 07:58 04/17/19 07:58 04/17/19 07:58 04/17/19 07:58 Oxygen Flow Rate (L/min) 2 Oxygen Delivery Method Room Air Weight: 201 lb 11.567 oz Body Mass Index (BMI) 40.7 Intake and Output for Last 24 Hours 04/15/19 04/16/19 04/17/19 23:59 23:59 23:59 Intake Total 1990.916 / 2340.916 915.5 / 915.5 Output Total 1150 / 3050 2900 / 2900 Balance 840.916 / -709.084 -1984.5 / -1984.5 Laboratory Tests Past 24 Hrs 04/17/19 05:56 WBC 11.1 H RBC 4.42 Hgb 12.8 Hct 38.1 MCV 86.2 MCH 29.0 MCHC 33.6 RDW Std Deviation 38.5 RDW Coeff of Tawanna 12.2 Plt Count 209 MPV 10.1 Medical Necessity - Tobacco Use Smoking Status: Never smoker Tobacco Use: Non-smoker Assessment/Plan All Active Problems (Last Reviewed 04/04/19 @ 15:03 by Amarilis Mancera) Dyspareunia (Acute) Abnormal uterine bleeding (Acute) Labial hypertrophy (Acute) Sterilization (Acute) LAVH POD#1 Routine care and plan discharge today.
--- NOTE | 2019-04-17 08:03 | DCINST_ITS ---
Allergies/Adverse Reactions: Allergies No Known Allergies Allergy (Verified 04/12/19 11:02) Medications to take at Discharge diltiazem 30 mg tablet 120 mg PO DAILY 08/14/17 levothyroxine 50 mcg tablet 150 mcg PO DAILY 08/14/17 montelukast 10 mg tablet 10 mg PO DAILY 08/14/17 omeprazole 20 mg capsule,delayed release 40 mg PO DAILY 08/14/17 sertraline 100 mg tablet 50 mg PO DAILY 10/04/18 Albuterol Inhaler [Ventolin Hfa (SP)] 1 - 2 puff INHALATION Q4H PRN PRN 10/10/18 Cetirizine HCl [Allergy Relief] 10 mg PO DAILY 04/12/19 Naproxen [Naprosyn] 250 - 500 mg PO Q8H PRN PRN #30 tab 04/16/19 Oxycodone HCl/Acetaminophen [Percocet 5-325] 1 - 2 tab PO Q4H PRN PRN 7 Days #15 tab 04/16/19 The following prescriptions were given: Naproxen [Naprosyn] 250 - 500 mg PO Q8H PRN PRN #30 tab PRN Reason: MILD PAIN Transmission Status: Received by [facility] Oxycodone HCl/Acetaminophen [Percocet 5-325] 1 - 2 tab PO Q4H PRN PRN 7 Days #15 tab PRN Reason: Pain Transmission Status: Received by [facility] Primary Care Physician: Teri Silvestre NP-C [Primary Care Provider] - Test Results: Test results from this visit will be discussed in further detail at your follow- up appointment, if applicable.
== END 2019-04-17 10:55 | disposition home or self-care (01) ==
LOC: SDC 05:42 → AC 05:43 → MS3 10:59
PROVIDERS: Family Provider Nurse Practitioner Family; PCP Nurse Practitioner Family; Referring Provider Obstetrics & Gynecology; Visit Provider Obstetrics & Gynecology
PROC: 0UT9FZZ Resection of Uterus, Via Natural or Artificial Opening With Percutaneous Endoscopic Assistance (ICD-10-PCS; CPT 58550; principal; 2019-04-16 07:05)
DX: D25.1 Intramural leiomyoma of uterus (principal); N80.0 Endometriosis of uterus; N72 Inflammatory disease of cervix uteri; N94.10 Unspecified dyspareunia; N90.60 Unspecified hypertrophy of vulva; I47.1 Supraventricular tachycardia; E78.00 Pure hypercholesterolemia, unspecified; E07.9 Disorder of thyroid, unspecified; J45.909 Unspecified asthma, uncomplicated; G47.30 Sleep apnea, unspecified; F32.9 Major depressive disorder, single episode, unspecified; F41.9 Anxiety disorder, unspecified; Z79.899 Other long term (current) drug therapy
CPT/HCPCS: 00940; 58550; 36415; 82962; 85027; 86850; 86900; 86901; 88307; 94762; J7120; A4216; J2405

== ENCOUNTER 2020-06-26 21:03 | Emergency (ER) | payer MEDICAID, SELFPAY ==
[2019-05-28 15:11] VITALS: BMI 40.7
[2020-06-26 21:04] VITALS: BP 154/91; PULSE 107; RESP 16; TEMP 36.9; O2SAT 100; BMI 36.3
--- NOTE | 2020-06-26 21:13 | EKG12_ITS ---
Test Reason : SOB Blood Pressure : / mmHG Vent. Rate : 098 BPM Atrial Rate : 098 BPM P-R Int : 138 ms QRS Dur : 078 ms QT Int : 344 ms P-R-T Axes : 036 020 030 degrees QTc Int : 439 ms Normal sinus rhythm Normal ECG Confirmed by ARTEM ROD, RONIT ([id number]), tape editor THOMAS FAM ([id number]) on 07/01/2020 9:49:26 A M Referred By: LINDSAY Confirmed By:LALITHA MCGILL MD
--- NOTE | 2020-06-26 21:14 | ED.VISSUMM ---
- ER Visit Summary Date of Service: 06/26/20 Chief Complaint: Difficulty taking a deep breath History of Present Illness: The patient is a 35 F has medical history of anxiety, SVT mild asthma high cholesterol hypothyroidism. Patient states the last 4 to 5 days she just feels it to be difficult to take a deep breath and feels mildly short of breath. Really denies any chest pain. No pleuritic pain. No hemoptysis. No leg pain or swelling. She herself was never had a DVT or PE. No recent travel, surgery or immobilization. There is no significant family history of cardiac disease or blood clots. She denies any hemoptysis. She denies any fever or chills or significant cough. Physical Examination: Well-appearing female vital signs stable afebrile. Her pulse ox 100% on room air no signs hypoxia. She seems mildly anxious. HEENT exam is unremarkable. Neck nontender no JVD no lymphadenopathy. Lungs clear to auscultation bilaterally. Heart regular rhythm rate about 100 no murmur. Chest wall nontender. Abdomen soft nontender. Extremities moves all 4. Calves are nontender without edema or cords. Moving all 4 extremities. Normal strength. Back nontender. Neurologically she is awake alert with no focal motor deficits. Test Results: Chest x-ray portable 1 view read by myself shows no acute abnormality. Interpreted as normal. She did have a piercing of her left nipple. Also read by the radiologist and agrees. CBC normal white count of 7. Hemoglobin 14. Chemistries unremarkable normal creatinine and gap. Normal troponin. EKG shows a normal sinus rhythm rate of 98 with no acute signs of MN, ischemia or dysrhythmia. Emergency Department Course and Treatment: Clinically seems more like anxiety. Her exam is basically unremarkable. She will undergo a cardiac work-up. She has no risk factors or family history of DVT or PE. Repeat exam patient is doing well at 10:52 PM. She and I went over her test results. She will be discharged home. Treatment Plan: Outpatient follow-up with her primary care physician. Disposition: Discharge Impression: Subjective dyspnea of uncertain etiology History of anxiety This note was generated with [employer] dictation software. It may contain incorrect words, spelling, and punctuation that were not noted in review of the chart prior to signing ED Disposition - Plan for ED Patient: Referrals: Konrad,Teri RENOVATOR MACHINE OPERATOR, RENOVATOR MACHINE OPERATOR-C [Primary Care Provider] -
[2020-06-26 21:34] VITALS: O2SAT 98
[2020-06-26 21:36] VITALS: O2SAT 98
[2020-06-26 21:36] LABS: Absolute Lymphocyte Count 3.31 X10^3/uL (0.83-4.51); Absolute Neutrophil Count 3.3 X10^3/uL (2.0-7.7); Basophil# 0.04 X10^3/uL; Basophil% 0.5 % (0-1); Eosinophil# 0.15 X10^3/uL; Hematocrit 41.8 % (37-47); Hemoglobin 14.4 g/dL (12.0-15.0); Lymphocyte # 3.31 X10^3/ul (4.0); Mean Corp Hgb Conc 34.4 g/dL (32-36); Mean Corpuscular Hgb 28.9 pg (27.0-32.0); Mean Corpuscular Volume 83.8 fL (81-99); Mean Platelet Vol. 10.1 fl (6.2-12.0); Monocyte# 0.56 X10^3/uL; Monocyte% 7.6 % (0-10); NRBC Flagged by Analyzer 0 % (0-5); Neutrophil # 3.28 X10^3/uL (2.7-7.7); Neutrophil % 44.8 % (47-70); Platelet Count 271 K/mm3 (150-450); RBC Distribution Width CV 12.3 % (11.6-14.6); RBC Distribution Width SD 37.2 fl (35.1-43.9); Red Blood Count 4.99 M/mm3 (4.2-5.4); White Blood Count 7.4 K/mm3 (4.4-11.0)
--- NOTE | 2020-06-26 21:38 | RAD_ITS ---
STUDY: X-RAY CHEST REASON FOR EXAM: Female, 35 years old. PT C/O CHEST TIGHTNESS X 4 DAYS AND FEELS SOB. TECHNIQUE: 1 view COMPARISON: None. FINDINGS: The lungs are clear and expanded. There is no demonstrated pleural abnormality. Normal size heart. Normal mediastinum and henrietta. Normal visualized pulmonary arteries. Normal visualized aortic arch and descending thoracic aorta. Normal visualized thoracic spine. Normal visualized ribs, clavicles, and shoulders. There is no demonstrated abnormality of the visualized soft tissue structures of the upper abdomen. RAD/Chest 1 View (Portable) IMPRESSION: Normal x-ray examination of the chest. Electronically Signed: Sridevi Ward MD at 21:56 EST , Service support ,
[2020-06-26 21:51] LABS: Anion Gap 6 (5-15); BUN 8 mg/dL (7-18); BUN/Creat Ratio 12.1 RATIO (10-20); Calcium,Total 9.1 mg/dL (8.5-10.1); Chloride 104 mmol/L (98-107); Creatinine, Serum 0.66 mg/dL (0.55-1.02); EST Glomerular Filtration Rate 108 mL/min (>60); Est Glom Filt Rate - Afr Amer 130 mL/min (>60); Estimated Creatinine Clearance 151.89 ml/min; Glucose 93 mg/dL (74-106); Potassium 3.8 mmol/L (3.5-5.1); Sodium Level 139 mmol/L (136-145)
[2020-06-26 22:48] VITALS: BP 133/86; PULSE 102; RESP 15; O2SAT 99
--- NOTE | 2020-06-26 22:55 | DCINST.ED_ITS ---
ED Disposition - Plan for ED Patient: Disposition: Home or Assisted Living Instructions: ED Dyspnea Referrals: Teri Silvestre RN RELIEF CHARGE, RN RELIEF CHARGE-C [Primary Care Provider] - 3-5 Days if not improving Additional Instructions: Follow-up with your primary care provider return if feeling worse. Your labs, EKG and chest x-ray tonight were all normal.
[2020-06-26 23:02] VITALS: BP 135/93; PULSE 98; RESP 25; O2SAT 100
== END 2020-06-26 23:04 | disposition home or self-care (01) ==
PROVIDERS: Emergency Provider Emergency Medicine; PCP Nurse Practitioner Family
DX: R06.00 Dyspnea, unspecified (principal); F41.9 Anxiety disorder, unspecified; E78.00 Pure hypercholesterolemia, unspecified; E03.9 Hypothyroidism, unspecified; J45.909 Unspecified asthma, uncomplicated
CPT/HCPCS: 71045; 80048; 84484; 85025; 93005; 99285; A4216

== ENCOUNTER → 2021-02-19 14:58 | Outpatient (CLI) | payer MEDICAID, SELFPAY ==
[2020-11-04 09:40] VITALS: BMI 36.3
--- NOTE | 2021-02-19 15:00 | RAD_ITS ---
STUDY: X-RAY - RIGHT ANKLE REASON FOR EXAM: Female, 35 years old. pain TECHNIQUE: 3 view(s) of the ankle. COMPARISON: None. FINDINGS: Normal visualized distal tibia and fibula. Chronic corticated avulsion fractures of the lateral malleolus the fibula. Normal tibiotalar articulation and ankle mortise. Normal visualized talus and calcaneus. The visualized subtalar, talonavicular, calcaneocuboid and tarsal articulations are normal. The soft tissue structures are unremarkable. RAD/Ankle min 3 Views IMPRESSION: No acute fracture or dislocation. Electronically Signed: David Simpson MD at 7:41 EDT Tel , Service support ,
== END ==
PROVIDERS: PCP Nurse Practitioner Family; Referring Provider Physician Assistant; Visit Provider Physician Assistant
DX: M25.572 Pain in left ankle and joints of left foot (principal)
CPT/HCPCS: 73610

== ENCOUNTER → 2021-03-29 16:25 | Outpatient (CLI) | payer MEDICAID, SELFPAY ==
[2021-03-29 17:23] LABS: Absolute Lymphocyte Count 3.12 X10^3/uL (0.83-4.51); Absolute Neutrophil Count 3.5 X10^3/uL (2.0-7.7); Basophil# 0.03 X10^3/uL; Basophil% 0.4 % (0-1); Eosinophil# 0.13 X10^3/uL; Eosinophils% 1.7 % (0-5); Hematocrit 40.6 % (37-47); Hemoglobin 13.6 g/dL (12.0-15.0); Lymphocyte # 3.12 X10^3/ul (0.83-4.51); Lymphocyte % 41.9 % (19-41); Mean Corp Hgb Conc 33.5 g/dL (32-36); Mean Corpuscular Hgb 29.6 pg (27.0-32.0); Mean Corpuscular Volume 88.3 fL (81-99); Mean Platelet Vol. 10.3 fl (6.2-12.0); Monocyte# 0.66 X10^3/uL; Monocyte% 8.9 % (0-10); NRBC Flagged by Analyzer 0 % (0-5); Neutrophil # 3.47 X10^3/uL (2.7-7.7); Neutrophil % 46.7 % (47-70); Platelet Count 323 K/mm3 (150-450); RBC Distribution Width CV 11.9 % (11.6-14.6); RBC Distribution Width SD 38.5 fl (35.1-43.9); White Blood Count 7.4 K/mm3 (4.4-11.0)
[2021-03-29 17:33] LABS: NATERA MAILED SPECIMEN
[2021-03-29 17:57] LABS: Estradiol 68.5 pg/mL; Follicle Stimulating Hormone 4.4 mIU/mL
[2021-04-03 12:08] LABS: Testosterone, Free 1.39 ng/dL (0.10-0.85); Testosterone, Total 56 ng/dL (8-60)
[2021-04-03 12:26] LABS: Testosterone, % Free 2.48 % (0.50-2.80)
== END ==
PROVIDERS: PCP Nurse Practitioner Family; Referring Provider Obstetrics & Gynecology; Visit Provider Obstetrics & Gynecology
DX: L68.0 Hirsutism (principal); R10.2 Pelvic and perineal pain; Z80.3 Family history of malignant neoplasm of breast
CPT/HCPCS: 36415; 82670; 83001; 84402; 84403; 85025

== ENCOUNTER → 2021-04-07 11:26 | Outpatient (CLI) | payer MEDICAID, SELFPAY ==
--- NOTE | 2021-04-07 11:42 | US_ITS ---
STUDY: ULTRASOUND OF THE FEMALE PELVIS - COMPLETE REASON FOR EXAM: Female, 35 years old. PELVIC PAIN -- pelvic pain b/l LMP: Status post hysterectomy. TECHNIQUE: Transabdominal and Transvaginal TECHNICAL QUALITY: Adequate. COMPARISON: None. FINDINGS: The patient is status post hysterectomy. The right ovary is visualized. The right ovary measures 3.4 cm x 2.7 cm x 3 cm. Follicles are seen within the ovary. There is no visualized right adnexal mass or complex lesion. There is normal arterial and normal venous vascularity. The left ovary is visualized. The left ovary measures 3.4 cm x 2.5 cm x 2.6 cm. Follicles are seen within the ovary. There is no visualized left adnexal mass or complex lesion. There is normal arterial and normal venous vascularity. There is no fluid in the cul-de-sac. The pre void volume of the bladder was 72 ml. US/Transvaginal Non- IMPRESSION: Status post hysterectomy. Follicles are seen in both ovaries. Electronically Signed: Richy Enciso MD at 13:11 EDT , Service support ,
--- NOTE | 2021-04-07 12:29 | BI_ITS ---
MAMMOGRAPHY - BILATERAL SCREENING REASON FOR EXAM: Female, 35 years old. Routine annual screening examination. PERTINENT HISTORY: Sister with breast cancer. TECHNIQUE: Digital bilateral breast neema (3D mammographic acquisition) in the CC and MLO projections. 2-D mediolateral oblique (MLO) and craniocaudad (CC) views of both breasts were obtained. CAD: Full Field Digital Mammography with Computer Added Detection was performed. COMPARISON: None. Baseline examination. FINDINGS: Breast Composition: There are scattered areas of fibroglandular density. There are no dominant masses or suspicious calcifications. No other significant abnormalities are identified. BI/SCRN MAMM (CAD)W/NEEMA BILAT IMPRESSION: Negative screening mammogram. Yearly followup mammogram recommended. (A) ASSESSMENT CATEGORY: BIRADS Category 1: Negative. A letter regarding these results will be sent to the patient by the facility within 30 days. Approximately 10% of breast cancers are not detected by mammography. A normal mammogram should not delay biopsy of a clinically suspicious abnormality. [id number] Electronically Signed: Richy Enciso MD at 13:30 EDT , Service support ,
== END ==
PROVIDERS: PCP Nurse Practitioner Family; Visit Provider Obstetrics & Gynecology
DX: Z12.31 Encounter for screening mammogram for malignant neoplasm of breast (principal); Z80.3 Family history of malignant neoplasm of breast; L68.0 Hirsutism; R10.2 Pelvic and perineal pain
CPT/HCPCS: 76830; 77063; 77067; 93976

== ENCOUNTER → 2023-08-21 | Outpatient (CLI) | payer MEDICAID, SELFPAY ==
--- OUTSIDE RECORDS SUMMARY | 2023-08-21 07:23 | XMS RPT_ITS | CCD ---
Author Name Unknown Address [address] [place] [address] Organization [facility] Care Team Providers Care Kiln Hand Name Role Phone Jose Crockett Unavailable Unavailable Jose Crockett Unavailable Unavailable Teri Llanes Unavailable Daly ROD, Rissa Steinberg Primary Care Provid er Teri Llanes CNP Primary Care Provider [phone] TERI LLANES Primary Care Unavailable ALEXIS BROWNA RONNIE Referring Unavailable CHRIS BROWN Attending Unavailable Teri Llanes Unavailable Marylou Claros Unavailable Unavailable Teri Llanes CNP Primary Care Provider [phone] Unavailable Unavailable Ms. Shraddha Teri Hedricky Referring Unavailable DO CHAD SMITH Attending Unavailable JENNY VILLAR Referring Unavailable JENNY VILLAR Attending Unavailable TERI LLANES Primary Care Unavailable Ms. Shraddha Teri Hedricky Referring Unavailable Dr. Chad Smith Admitting Unavailable Luis, Dr. Chad Moon Attending Unavailable Dr. Chad Smith Attending Unavailable Luis, Dr. Chad Moon Referring Unavailable Ms. Kate Llanesa Agustina Attending Unavailable Teri Llanes CNP Primary Care Provider [phone] Shraddha ASSOCIATE PROFESSOR OF PATHOLOGYTeri JOSUE Primary Care Provider TERI LLANES Admitting Unavailable TERI LLANES Primary Care Unavailable TERI LLANES Attending Unavailable SHRADDHA, TERI Attending Unavailable SHRADDHA, TERI Admitting Unavailable SHRADDHA, TERI Primary Care Unavailable SHRADDHA, TERI Consulting Unavailable PROVIDER, UNKNOWN Consulting Unavailable SHRADDHA, TERI Admitting Unavailable SHRADDHA, TERI Primary Care Unavailable SHRADDHA, TERI Consulting Unavailable SHRADDHA, TERI Attending Unavailable PROVIDER, UNKNOWN Consulting Unavailable SHRADDHA, TERI Attending Unavailable SHRADDHA, TERI Admitting Unavailable SHRADDHA, TERI Primary Care Unavailable SHRADDHA, TERI Consulting Unavailable PROVIDER, UNKNOWN Consulting Unavailable GAURAV VERMA Attending Unavailable TERI LLANES Admitting Unavailable SHRADDHA, TERI RAMIREZ Primary Care Unavailable TERI LLANES AGUSTINA Referring Unavailable SHRADDHA, TERI AGUSTINA Primary Care Unavailable ANA MARÍA HURT Attending Unavailable SHRADDHA, TERI RAMIREZ Primary Care Unavailable JULIANNA MATUTE Attending Unavailable GAURAV VERMA Referring Unavailable GAURAV VERMA Attending Unavailable TERI LLANES Primary Care Unavailable TERI LLANES Primary Care Unavailable GAURAV VERMA Referring Unavailable GAURAV VERMA Attending Unavailable Medications Current Medications Medication Drug Class(es) Dates Sig (Normalized) Sig (Original) [id number] 200 actuat albuterol 0.09 mg/actuat metered dose inhaler (15 sources) beta2-Adrenergic Agonist take 2 puff(s) by inhalation every six hours as needed for wheezing albuterol 90 mcg/actuation inhaler Inhale 2 (two) puffs every 6 (six) hours as needed for wheezing . 0 Active Completed/Discontinued Medications Medication Drug Class(es) Dates Sig (Normalized) Sig (Original) 100 ml acetaminophen 10 mg/ml injection (1 source) Start: 08-19-2021 End: 08-19-2021 acetaminophen (OFIRMEV) injection cefadroxil 1000 mg oral tablet (7 sources) Cephalosporin Antibacterial Start: 08-19-2021 End: 06-14-2023 cefadroxil (DURICEF) 1 gram tablet Take 1 (one) tablet (1 g total) by mouth daily . 10 tablet 0 08/19/2021 06/14/2023 Discontinued (Therapy completed) ceFAZolin 2000 mg injection (1 source) Cephalosporin Antibacterial Start: 08-19-2021 End: 08-19-2021 ceFAZolin (ANCEF) IVPB 2 g (premix) cholecalciferol 0.05 mg oral capsule (2 sources) Vitamin D take 3 capsules by mouth once Vitamin D 50 MCG (1999 UT) Oral Capsule Quantity: 0 Refills: 0 Ordered: 09-Nov-2022 DO Active 1 ml dexamethasone phosphate 4 mg/ml injection (1 source) Corticosteroid Start: 08-19-2021 End: 08-19-2021 dexamethasone (DECADRON) injection dicyclomine hydrochloride 20 mg oral tablet (3 sources) Anticholinergic Start: 08-12-2016 take 1 tablet by mouth every six hours as needed Dicyclomine HCl - 20 MG Oral Tablet TAKE 1 TABLET EVERY 6 HOURS NEEDED. Quantity: 0 Refills: 0 Ordered: 12-Aug-2016 DO Start : 12-Aug-2016 Active 1 ml fentaNYL 0.05 mg/ml injection (1 source) Opioid Agonist Start: 08-19-2021 End: 08-19-2021 fentaNYL (SUBLIMAZE) injection fluticasone propionate 0.05 mg/actuat metered dose nasal spray (6 sources) Corticosteroid End: 03-23-2021 take 2 spray(s) nasal route once daily fluticasone (FLONASE) 50 mcg/actuation nasal spray 2 sprays into each nostril daily. 0 03/23/2021 Discontinued ibuprofen 800 mg oral tablet (1 source) Nonsteroidal Anti-inflammatory Drug Start: 06-30-2019 take 1 tablet by mouth four times daily as needed ibuprofen 800 mg oral tablet ; 1 tab(s) orally 4 times a day, As Needed Quantity: 30 Refills: 0 Ordered: 30-Jun-2019 Tin Fabian Start: 30-Jun-2019 Status: Other Generic Substitution Allowed Comments: Do not take this drug if you are .It is very important that you take or use this exactly as directed. Do not skip doses or discontinue unless directed by your doctor.May cause drowsiness or dizziness.Obtain medical advice before taking any non-prescription drugs as some may affect the action of this medication.Take with food or milk. Problems Active Problems Problem Classification Problem Date Documented Da te Episodic/Chronic Abdominal pain (6 sources) Left lower quadrant pain; Translations: [Abdominal pain, left lower quadrant] Onset: 3 12-07-2022 Episodic Acute bronchitis (2 sources) Acute bronchitis; Translations: [Acute bronchitis] 10-08-2021 Episodic Anxiety disorders (5 sources) Anxiety; Translations: [Anxiety state, unspecified] Chronic Asthma (10 sources) Asthma; Translations: [Unspecified asthma, uncomplicated] Onset: 2 08-10-2021 Chronic Cardiac dysrhythmias (18 sources) Supraventricular tachycardia; Translations: [Supraventricular tachycardia] Onset: 6 11-13-2015 Chronic Cardiac dysrhythmias (6 sources) Palpitations; Translations: [Palpitations] Onset: 3 05-25-2023 Episodic Disorders of lipid metabolism (1 source) Hyperlipidemia, unspecified; Translations: [Hyperlipidemia, unspecified] Onset: 3 Chronic Esophageal disorders (15 sources) Gastric reflux; Translations: [Esophageal reflux] Onset: 2 08-10-2021 Chronic Fracture of lower limb (8 sources) Fracture of distal end of fibula; Translations: [Unspecified fracture of ankle, closed] Episodic Nutritional deficiencies (1 source) Vitamin D deficiency, unspecified; Translations: [Vitamin D deficiency, unspecified] Onset: 3 Chronic Other circulatory disease (5 sources) History of cardiac arrhythmia; Translations: [Personal history of other diseases of circulatory system] Episodic Other connective tissue disease (1 source) Pain of bilateral hands; Translations: [Pain in right hand] Episodic Other connective tissue disease (1 source) Bilateral trochanteric bursitis; Translations: [Trochanteric bursitis, right hip] Episodic Other endocrine disorders (1 source) Other hypoglycemia; Translations: [Other hypoglycemia] Onset: 3 Chronic Other gastrointestinal disorders (1 source) Splenomegaly, not elsewhere classified; Translations: [Splenomegaly, not elsewhere classified] Onset: 3 Episodic Other injuries and conditions due to external causes (5 sources) Injury of right ankle; Translations: [Knee, leg, ankle, and foot injury] Episodic Other liver diseases (5 sources) Chronic liver disease; Translations: [Unspecified chronic liver disease without mention of alcohol] Chronic Other liver diseases (1 source) Fatty (change of) liver, not elsewhere classified; Translations: [Fatty (change of) liver, not elsewhere classified] Onset: 3 Chronic Other liver diseases (5 sources) Large liver; Translations: [Hepatomegaly] Episodic Other non-traumatic joint disorders (2 sources) Joint pain; Translations: [Pain in unspecified joint] Episodic Other non-traumatic joint disorders (3 sources) Instability of joint of right ankle; Translations: [Other instability, right ankle] Episodic Other non-traumatic joint disorders (4 sources) Pain in right shoulder; Translations: [Pain in right shoulder] Onset: 3 Episodic Other nutritional; endocrine; and metabolic disorders (10 sources) Body mass index 30+ - obesity; Translations: [Obesity, unspecified] Onset: 2 08-10-2021 Chronic Other nutritional; endocrine; and metabolic disorders (1 source) Hypomagnesemia; Translations: [Hypomagnesemia] Onset: 3 Chronic Other nutritional; endocrine; and metabolic disorders (5 sources) H/O: hypothyroidism; Translations: [Personal history of other endocrine, metabolic, and immunity disorders] Episodic Other screening for suspected conditions (not mental disorders or infectious disease) (6 sources) Decreased vitamin D; Translations: [Other specified abnormal findings of blood chemistry] Onset: 3 Episodic Other upper respiratory disease (2 sources) Nasal congestion; Translations: [Other disease of nasal cavity and sinuses] 10-08-2021 Episodic Residual codes; unclassified (10 sources) Obstructive sleep apnea syndrome; Translations: [Obstructive sleep apnea (adult) (pediatric)] Onset: 2 08-10-2021 Chronic Residual codes; unclassified (1 source) Pain; Translations: [Pain, unspecified] Episodic Screening and history of mental health and substance abuse codes (5 sources) H/O: depression; Translations: [Personal history of other mental disorders] Episodic Thyroid disorders (11 sources) Hypothyroidism; Translations: [Hypothyroidism, unspecified] Onset: 2 08-10-2021 Chronic Unclassified (2 sources) COLDY SYMPTOMS 10-08-2021 Past or Other Problems Problem Classification Problem Date Documented Da te Episodic/Chronic Gastrointestinal hemorrhage (10 sources) Rectal hemorrhage; Translations: [Hemorrhage of rectum and anus] Onset: 09-22-2022 Episodic Other non-traumatic joint disorders (15 sources) Acute ankle pain; Translations: [Pain in right ankle and joints of right foot] Onset: 04-28-2021 Episodic Residual codes; unclassified (13 sources) Patient encounter status; Translations: [Encounter for procedure for purposes other than remedying health state, unspecified] Onset: 06-28-2021 Episodic Sprains and strains (19 sources) Sprain of right ankle; Translations: [Sprain of unspecified ligament of right ankle, initial encounter] Onset: 04-28-2021 Episodic Results Test Name Value Interpretation Reference Range Facil ity Vital Signs Date Time Vital Sign Value Performing Clinician Facility 06-14-2023 13:24-0500 Diastolic blood pressure 82 mm[Hg] Gaurav Verma MD Work Phone: [facility] 06-14-2023 13:24-0500 Heart rate 93 /min Gaurav Verma MD Work Phone: [facility] 06-14-2023 13:24-0500 Systolic blood pressure 126 mm[Hg] Gaurav Verma MD Work Phone: [facility] 06-14-2023 13:11-0500 Body height 151.1 cm Gaurav Verma MD Work Phone: [facility] 06-14-2023 13:11-0500 Body mass index (BMI) [Ratio] 37.53 kg/m2 Gaurav Verma MD Work Phone: [facility] 06-14-2023 13:11-0500 Body weight 85.73 kg Gaurav Verma MD Work Phone: [facility] 06-14-2023 13:11-0500 SaO2% (BldA) [Mass fraction] 98 % Gaurav Verma MD Work Phone: [facility] 11-28-2022 09:49-0400 Body height 149.8 cm Chad Smith DO Work Phone: [facility] 11-28-2022 09:49-0400 Body mass index (BMI) [Ratio] 38.55 kg/m2 Chad Smith DO Work Phone: [facility] 11-28-2022 09:49-0400 Body weight 86.5 kg Chad Smith DO Work Phone: [facility] 11-10-2022 09:18-0400 Body height 152.4 cm Teri Llanes Work Phone: [facility] [place] [address] Work Phone: 11-10-2022 09:18-0400 Body mass index (BMI) [Ratio] 38.55 kg/m2 Teri Llanes Work Phone: [facility] [place] [address] Work Phone: 11-10-2022 09:18-0400 Body surface area Derived from formula 1.86 m2 Teri Llanes Work Phone: [facility] Work Phone: 11-10-2022 09:18-0400 Body weight 89.53 kg [facility] Work Phone: 10-08-2021 14:25-0400 Body height 149.8 cm Teri Llanes Other Phone: [facility] 10-08-2021 14:25-0400 Body temperature 98.6 [degF] Teri Llanes Other Phone: [facility] 10-08-2021 14:25-0400 Diastolic blood pressure 98 mm[Hg] Teri Llanes Other Phone: [facility] 10-08-2021 14:25-0400 Heart rate 94 /min Teri Llanes Other Phone: [facility] 10-08-2021 14:25-0400 Respiratory rate 16 /min Teri Llanes Other Phone: [facility] 10-08-2021 14:25-0400 SaO2% (BldA) [Mass fraction] 95 % Teri Llanes Other Phone: [facility] 10-08-2021 14:25-0400 Systolic blood pressure 142 mm[Hg] Teri Llanes Other Phone: [facility] 09-27-2021 15:26-0400 Body temperature 98.01 [degF] Chris MARTINM Work Phone: [facility] 09-27-2021 15:26-0400 Diastolic blood pressure 86 mm[Hg] Chris Kevin DPM Work Phone: [facility] 09-27-2021 15:26-0400 Heart rate 87 /min Chris Kevin DPM Work Phone: [facility] 09-27-2021 15:26-0400 Systolic blood pressure 131 mm[Hg] Chris Savonburg DPM Work Phone: [facility] 08-23-2021 09:43-0500 Body temperature 98.6 [degF] Chris Savonburg DPM Work Phone: [facility] 08-23-2021 09:43-0500 Diastolic blood pressure 87 mm[Hg] Chris Kevin DPM Work Phone: [facility] 08-23-2021 09:43-0500 Heart rate 105 /min Chris Savonburg DPM Work Phone: [facility] 08-23-2021 09:43-0500 Systolic blood pressure 133 mm[Hg] Chris Kevin DPM Work Phone: [facility] 08-17-2021 08:50-0500 Body temperature 99.1 [degF] Chris Kevin DPM Work Phone: [facility] 08-17-2021 08:50-0500 Diastolic blood pressure 84 mm[Hg] Chris Savonburg DPM Work Phone: [facility] 08-17-2021 08:50-0500 Heart rate 102 /min Chris Kevin DPM Work Phone: [facility] 08-17-2021 08:50-0500 Systolic blood pressure 139 mm[Hg] Chris Savonburg DPM Work Phone: [facility] 06-28-2021 09:39-0500 Body temperature 98.29 [degF] Chris Savonburg DPM Work Phone: [facility] 06-28-2021 09:39-0500 Diastolic blood pressure 79 mm[Hg] Chris Kevin DPM Work Phone: [facility] 06-28-2021 09:39-0500 Heart rate 88 /min Chris Savonburg DPM Work Phone: [facility] 06-28-2021 09:39-0500 Systolic blood pressure 125 mm[Hg] Chris Kevin DPM Work Phone: [facility] 03-23-2021 10:48-0400 Body temperature 98.4 [degF] Chris Savonburg DPM Work Phone: [facility] 02-22-2021 07:45-0400 Body temperature 97.3 [degF] Chris Savonburg DPM Work Phone: [facility] 02-22-2021 07:45-0400 Diastolic blood pressure 87 mm[Hg] Chris Savonburg DPM Work Phone: [facility] 02-22-2021 07:45-0400 Heart rate 76 /min Chris Savonburg DPM Work Phone: [facility] 02-22-2021 07:45-0400 Systolic blood pressure 133 mm[Hg] Chris Savonburg DPM Work Phone: [facility] 02-16-2021 10:21-0400 Body height 149.9 cm Jeanine Best MD Work Phone: [facility] 02-16-2021 10:21-0400 Body mass index (BMI) [Ratio] 40.6 kg/m2 Jeanine Best MD Work Phone: [facility] 02-16-2021 10:21-0400 Body weight 91.17 kg Jeanine Best MD Work Phone: [facility] 02-16-2021 10:21-0400 Diastolic blood pressure 90 mm[Hg] Jeanine Best MD Work Phone: [facility] 02-16-2021 10:21-0400 Heart rate 89 /min Jeanine Best MD Work Phone: [facility] 02-16-2021 10:21-0400 Systolic blood pressure 145 mm[Hg] Jeanine Best MD Work Phone: [facility] 02-09-2021 09:32-0400 Body mass index (BMI) [Ratio] 40.6 kg/m2 Colleen Cooley MD Work Phone: [facility] 02-09-2021 09:32-0400 Body weight 91.17 kg Colleen Cooley MD Work Phone: [facility] 02-09-2021 09:32-0400 Diastolic blood pressure 83 mm[Hg] Colleen Cooley MD Work Phone: [facility] 02-09-2021 09:32-0400 Heart rate 92 /min Colleen Cooley MD Work Phone: [facility] 02-09-2021 09:32-0400 Systolic blood pressure 143 mm[Hg] Colleen Cooley MD Work Phone: [facility] 02-04-2021 18:36-0400 Body height 152.4 cm Teri Llanes Work Phone: [facility] Work Phone: 02-04-2021 18:36-0400 Body mass index (BMI) [Ratio] 38.43 kg/m2 Teri Llanes Work Phone: [facility] Work Phone: 02-04-2021 18:36-0400 Body surface area Derived from formula 1.85 m2 Teri Llanes Work Phone: [facility] Work Phone: 02-04-2021 18:36-0400 Body temperature 96.4 [degF] Teri Llanes Work Phone: [facility] Work Phone: 02-04-2021 18:36-0400 Body weight 89.27 kg Teri Llanes Work Phone: [facility] Work Phone: 02-04-2021 18:36-0400 Diastolic blood pressure 96 mm[Hg] Teri Llanes Work Phone: [facility] Work Phone: 02-04-2021 18:36-0400 Heart rate 70 /min Teri Llanes Work Phone: [facility] Work Phone: 02-04-2021 18:36-0400 Respiratory rate 16 /min Teri Llanes Work Phone: [facility] Work Phone: 02-04-2021 18:36-0400 SaO2% (BldA) [Mass fraction] 99 % Teri Llanes Work Phone: [facility] Work Phone: 02-04-2021 18:36-0400 Systolic blood pressure 145 mm[Hg] Teri Llanes Work Phone: [facility] Work Phone: Encounters Encounter Date Encounter Type Care Provider Facility Start: 08-14-2023 End[facility] 07-27-[facility]23 ambulatory TERI LLANES [facility] Start: 07-25-2023 End: 07-25-2023 ambulatory TERI LLANES [facility] Start: 06-20-2023 End: 06-20-2023 ambulatory TERI LLANES [facility] Start: 06-14-2023 End: 2023 ambulatory TERI AGUSTINA [facility] Start: 06-14-2023 End: 06-14-[facility] Start: 06-14-2023 Documentation procedure Lisandro Nye RN [facility] Start: 06-14-2023 End: 06-14-2023 Office outpatient new 45 minutes Teri Agustinasay Llanes SERGER Work Phone: [facility] Procedures Date Procedure Procedure Detail Performing Clinician Start: 06-14-2023 Ecg routine ecg w/le ast 12 lds w/i&r Gaurav Verma MD Work Phone: Start: 11-29-2022 Colonoscopy stoma dx including collj spec spx Teri Goyal Shraddha ASSOCIATE PROFESSOR OF PATHOLOGY-SERGER Work Phone: Start: 08-23-2021 APPLY WALKING BOOT Chris Sabry Savonburg DPM Work Phone: Start: 08-23-2021 APPLY DRESSING Chris Sab ry Kevin DPM Work Phone: Start: 08-19-2021 AIRWAY ETT Jamey Pringle AA Work Phone: section Teri Goyal Jaime is Work Phone: Cone biopsy of cervix Teri Goyal Shraddha Work Phone: Hysterectomy Teri Goyal Shraddha Work Phone: Operative procedure on foot Teri Goyal Shraddha Work Phone: Operative procedure on wrist Teri Goyal Shraddha Work Phone: Plan of Treatment Date Care Activity Detail Author Start: 2034 Zoster Vaccines (1 of 2) Zoster Vaccines (1 of 2) [facility] Start: 09-13-2023 End: 09-13-2023 Patient encounter procedure 09/13/2023 9:50 AM EST Office Visit [facility] [address] [place] [address] [place] [phone] Gaurav Verma MD [address] [place] [id number] Suraj Morgan MD [address] [place] [id number] [facility] Start: 06-27-2023 End: 06-27-2023 Patient encounter procedure 06/27/2023 10:45 AM EST Appointment [facility] [address] [place] [address] Gaurav Verma MD [facility] [place] [address] [facility] Start: 06-14-2023 End: 08-15-2024 Echocardiography Echocardiogram complete Echocardiography Routine Palpitation Abnormal EKG Expected: 06/14/2023, Expires: 08/15/2024 [facility] Work Phone: Immunizations Immunization Date Immunization Notes Care Provider Fa cili 11-28-2020 Pfizer SARS-CoV-2 Vaccination Chris Brown DPM Work Phone: [facility] 11-05-2020 Pfizer SARS-CoV-2 Vaccination Chris Kevin DPM Work Phone: [facility] Payers Date Payer Category Payer Unknown [id number] 2015 Medicaid [id number] 2015 Medicaid [id number] 2015 Medicaid [id number] 2015 Private Health Insurance [id number] 1984 Unknown [id number] 2.16. [id number] 1984 Unknown [id number] 2.16. [id number] 1984 Unknown [id number] 2.16. [id number] 1984 Unknown [id number] 2.16.8 [id number] 1984 Unknown [id number] 2.16.8 [id number] 1984 Unknown [id number] 2.16.8 [id number] 1984 Unknown [id number] 2.16.8 [id number] 1984 Unknown [id number] 2.16.8 [id number] 1984 Unknown [id number] 2.16.84 [id number] 1984 Unknown [id number] 2.16. [id number] 1984 Unknown [id number] 2.16. [id number] 1984 Unknown [id number] 2.16. [id number] 1984 Unknown [id number] 2.16. [id number] 1984 Unknown [id number] 2.16. [id number] Private Health Insurance [id number] Unknown Social History Date Type Detail Facility Start: 01-11-2022 End: 11-09-2022 No alcohol use No alcohol use [facility] Work Phone: Start: 11-13-2015 End: 02-09-2021 Tobacco smoking status NHIS Former smoker [facility] Start: 02-09-2021 End: 06-14-2023 Tobacco use and exposure Never used [facility] Start: 02-09-2021 End: 06-14-2023 Alcohol intake Current non-drinker of alcohol (finding) [facility] Start: 1985 Sex Assigned At Not on file [facility] Start: 09-17-2021 End: 01-27-2022 Exposure to SARS-CoV-2 (event) Not sure [facility] Tobacco smoking consumption unknown [facility] of tobacco use [facility] Start: 01-11-2022 Tobacco use panel [facility] Start: 11-14-2022 Gender identity Identifies as female gender (finding) [facility] Start: 11-14-2022 Sexual orientation Heterosexual (finding) [facility] Start: 06-14-2023 Tobacco smoking status NHIS Never smoked tobacco [facility] Medical Equipment Procedure Code Equipment Code Equipment Origin al Text Equipment Identifier Dates Matrix 3 X 6cm T hick Amnion - Sna [id number] Start: 08-19-2021 Kit Repair Ligam ent Internalbrace Standard Biocomposite - Sna [id number] Start: 08-19-2021 Clinical Notes 02-04-2021 to 06-14-2023 Phuong Nye RN - 06/14/2023 2:00 PM Sarah Bagley MA - 06/14/2023 1:28 PM Gaurav Garland MD - 06/14/2023 1:16 PM ESTPatient InstructionsAnn Ivon Cooley MD - 02/07/2022 2:33 AM EDT Note Date & Type Note Facility 06-14-2023 History of Present illness Narrative # day Holter monitor applied in office. # [id number] documented in this encounter [facility] 06-14-2023 History of Present illness Narrative Review of Systems Cardiovascular: Positive for palpitations. All other systems reviewed and are negative. OFFICE CONSULTATION NOTE [facility] [address]) [facility] [address] [facility] [id number] Physicians: Teri Llanes CNP (Family); Teri Llanes CNP (Referring) Subjective: Barrington Beyer is a 37 y.o. female seen in the office today for Establish Care (Per Teri Llanes CNP for palpitations/h/o SVT) . HPI patient is here to be evaluated for ablation. She is known to have PSVT since 2015. At that time she was described as either having atrial tachycardia and/or AVNRT. She was to stay on medication and was treated with Cardizem. Her long while i her episodes are tolerable but in the last several months they have become more frequent and she felt the medicines was not working. Despite being titrated to to 2 40 mg a day he has not tried any vagal maneuvers. She has not been tried on any other medications. There is a history of diabetes and hyperlipidemia Assessment/Plan PSVT symptomatic. We will check echo and Holter monitor. Will refer to EP ECG: Sinus Rhythm -Short CT syndrome [place] = 112 Low voltage in precordial leads. ABNORMAL Reviewed personally No problem-specific Assessment & Plan notes found for this encounter. Follow Up Ordered: No follow-ups on file. Patient's Medications New Prescriptions No medications on file Previous Medications ALBUTEROL 90 MCG/ACTUATION INHALER Inhale 2 puffs every 6 (six) hours as needed for wheezing . ATORVASTATIN (LIPITOR) 40 MG TABLET Take 1 (one) tablet (40 mg total) by mouth daily Evening . CEFADROXIL (DURICEF) 1 GRAM TABLET Take 1 (one) tablet (1 g total) by mouth daily . CYCLOBENZAPRINE (FLEXERIL) 10 MG TABLET Take 10 mg by mouth as needed . DILTIAZEM (CARDIZEM CD) 120 MG 24 HR CAPSULE Take 120 mg by mouth daily Evening . FENOFIBRATE (TRICOR) 145 MG TABLET Take 1 (one) tablet (145 mg total) by mouth daily Evening . HYDROXYZINE (ATARAX) 10 MG TABLET Take 10 mg by mouth daily Evening . LEVOTHYROXINE (SYNTHROID, LEVOTHROID) 75 MCG TABLET Take 75 mcg by mouth once daily Evening . MOMETASONE-FORMOTEROL 100-5 MCG/ACTUATION HFAA Inhale 2 puffs . OMEPRAZOLE (PRILOSEC) 40 MG CAPSULE Take 40 mg by mouth daily Evening . PREGABALIN (LYRICA) 50 MG CAPSULE Take 50 mg by mouth at bedtime Evening . VENLAFAXINE (EFFEXOR-XR) 150 MG 24 HR CAPSULE Take 1 (one) capsule (150 mg total) by mouth daily . Modified Medications No medications on file Discontinued Medications VENLAFAXINE 225 MG TR24 Take 225 mg by mouth daily . Histories: Past Medical History: Diagnosis Date Anxiety Arthritis Asthma Chronic pain disorder Depression Fibromyalgia, primary Fibromyoma GERD (gastroesophageal reflux disease) Hyperlipidemia Hypothyroidism Sleep apnea, obstructive no cpap SVT (supraventricular tachycardia) Past Surgical History: Procedure Laterality Date AR'SCOPY ANKLE W/STABILIZATION Right 08/19/2021 Procedure: Ankle Arthroscopy with lateral ankle stabilization, Right; Surgeon: Chris Brown DPM; Location: Main OR; Service: Podiatry CARPAL TUNNEL RELEASE Bilateral SECTION HYSTERECTOMY Family History Problem Relation Age of Onset Melanoma Father Heart disease Father No Known Problems Mother Cancer Sister Seizures Brother No Known Problems Brother Social History Tobacco Use Smoking status: Never Smokeless tobacco: Never Vaping Use Vaping Use: Never used Substance Use Topics Alcohol use: No Drug use: Not Currently Comment: 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 HENT: Negative. Eyes: Negative. Cardiovascular: Positive for palpitations. Respiratory: Negative. Endocrine: Negative. Skin: Negative. Musculoskeletal: Negative. Gastrointestinal: Negative. Genitourinary: Negative. Neurological: Negative. Psychiatric/Behavioral: Negative. All other systems reviewed and are negative. Overview of Problems Addressed: No problems updated. Objective: Vitals: Ht 4' 11.5 Wt 85.7 kg (189 lb) BMI 37.53 kg/m Physical Exam Constitutional: Appearance: Normal appearance. HENT: Head: Normocephalic and atraumatic. Nose: Nose normal. Eyes: Extraocular Movements: Extraocular movements intact. Pupils: Pupils are equal, round, and reactive to light. Cardiovascular: Rate and Rhythm: Normal rate and regular rhythm. Pulses: Normal pulses. Heart sounds: Normal heart sounds. Pulmonary: Effort: Pulmonary effort is normal. Breath sounds: Normal breath sounds. Abdominal: General: Abdomen is flat. Bowel sounds are normal. Palpations: Abdomen is soft. Musculoskeletal: General: Normal range of motion. Cervical back: Normal range of motion and neck supple. Skin: General: Skin is warm and dry. Neurological: General: No focal deficit present. Mental Status: She is alert and oriented to person, place, and time. Mental status is at baseline. 1. Palpitation Gaurav Verma MD 06/14/2023 documented in this encounter [facility] 06-14-2023 Instructions Phuong Nye RN - 06/14/2023 1:[address] Verma Nurse- TRESSA Baca Any questions or concerns please call [phone] THANK YOU FOR VISITING [facility]! Holter Help and Phone Number LIAM Diaz [phone] [employer] [phone] Date and Time of Study to End Holter Monitor Essentials 1. The device is waterproof. Showers are OKAY 2. Device battery is to last up to 5 days. Anything past 5 days needs to be charged. Starter Mechanic included in the box. 3. Extra strips are inside of the box. Sensitivity patches will need to be mailed by [employer] if needed. [phone] 4. Please DO NOT return the device to [facility] after the study has been completed. It will be the patient's responsibility to return the device to [employer]. 5. Diary is located in the box. Date, Time of event and symptom is to be written down. Please note if having palpitations frequently, it is not necessary to write down every symptom. Your device will catch every heart rhythm for you. 6. After the device is mailed, it will take 1-2 weeks for your results to be returned to you. It is the ordering provider s nurse responsibility to call you with the results. [facility] Drop Off Box Locations Number for [facility]: [phone] [address] [place], [address] [address] [place], [address] [place], [address] [facility] STORE # [id number] [place], [address] [facility] [facility] STORE [address] [place], [address] [facility] STATION [address] [facility], [place], [address] [facility] [address] [place], [address] [facility] [facility] STORE [address] [place], [address] [facility] MORE [address] [facility], [place] [address] [facility] [address] [facility] [place], [address] [facility] STORE [address][id number] [address] [facility] [address], [place], [address] [employer] [facility]ARDWARE [address] [place], [address] [facility] [address] [place], [address] [address] [place], [address] [facility] ST[facility] [address] [place], [address] [facility] [facility] ST[facility] [address] [place], [address] documented in this encounter [facility] 11-29-2022 Note Patient Name: Barrington Beyer Procedure Date: 11/29/2022 11:24 AM Date of : 1985 Admit Type: Outpatient Site: [facility] 1 Ethnicity: Not or Race: White Attending MD: Chad Smith DO, [id number] Procedure: Colonoscopy Indications: Abdominal pain in the left lower quadrant Providers: Chad Smith DO (Doctor), Darby Quintero RN (Nurse), Ruby Marshall, [employer] Control Assistant Referring: Teri Llanes Medicines: Midazolam 7.5 mg IV, Meperidine 50 mg IV, Glucagon 1 mg IV Complications: No immediate complications. Procedure: Pre-Anesthesia Assessment: - Prior to the procedure, a History and Physical was performed, and patient medications and allergies were reviewed. The patient is competent. The risks and benefits of the procedure and the sedation options and risks were discussed with the patient. All questions were answered and informed consent was obtained. Patient identification and proposed procedure were verified by the physician in the pre-procedure area. Mental Status Examination: alert and oriented. Airway Examination: normal oropharyngeal airway and neck mobility. Respiratory Examination: clear to auscultation. CV Examination: normal. Prophylactic Antibiotics: The patient does not require prophylactic antibiotics. Prior Anticoagulants: The patient has taken no anticoagulant or antiplatelet agents. ASA Grade Assessment: II - A patient with mild systemic disease. After reviewing the risks and benefits, the patient was deemed in satisfactory condition to undergo the procedure. The anesthesia plan was to use moderate sedation / analgesia (conscious sedation). Immediately prior to administration of medications, the patient was re-assessed for adequacy to receive sedatives. The heart rate, respiratory rate, oxygen saturations, blood pressure, adequacy of pulmonary ventilation, and response to care were monitored throughout the procedure. The physical status of the patient was re-assessed after the procedure. After I obtained informed consent, the scope was passed under direct vision. Throughout the procedure, the patient's blood pressure, pulse, and oxygen saturations were monitored continuously. The pediatric colonoscope was introduced through the anus and advanced to the terminal ileum, with identification of the appendiceal orifice and IC valve. The colonoscopy was performed without difficulty. The patient tolerated the procedure well. The quality of the bowel preparation was excellent. The terminal ileum, ileocecal valve, appendiceal orifice, and rectum were photographed. Findings: The perianal and digital rectal examinations were normal. Pertinent negatives include normal sphincter tone and no palpable rectal lesions. The terminal ileum appeared normal. The entire examined colon appeared normal on direct and retroflexion views. Moderate Sedation: Moderate (conscious) sedation was administered by the nurse and supervised by the endoscopist. The following parameters were monitored: oxygen saturation, heart rate, blood pressure, and response to care. Total physician intraservice time was 21 minutes. Estimated Blood Loss: Estimated blood loss: none. Impression: - The examined portion of the ileum was normal. - The entire examined colon is normal on direct and retroflexion views. - No specimens collected. Recommendation: - Patient has a contact number available for emergencies. The signs and symptoms of potential delayed complications were discussed with the patient. Return to normal activities tomorrow. Written discharge instructions were provided to the patient. - Resume previous diet. (more content not included)... [facility] - 11-16-2022 History of Present illness Narrative Barrington is a pleasant 37-year-old female has had persistent left lower quad abdominal pain for at least 8 months. She states pain intensifies before bowel movement and tends to last for hours afterwards. Intermixed with that she is having predictable rectal bleeding which occurs 2-3 times weekly blood is bright red during and after bowel movement. She denies any family history of colorectal cancer no prior imaging studies no lab work has been drawn.Denies any weight loss no night sweats averaging 2 bowel movements daily. [facility] Work Phone: 11-10-2022 History of Present illness Narrative Barrington is a pleasant 37-year-old female has had persistent left lower quad abdominal pain for at least 8 months. She states pain intensifies before bowel movement and tends to last for hours afterwards. Intermixed with that she is having predictable rectal bleeding which occurs 2-3 times weekly blood is bright red during and after bowel movement. She denies any family history of colorectal cancer no prior imaging studies no lab work has been drawn.Denies any weight loss no night sweats averaging 2 bowel movements daily. [facility] Work Phone: 02-07-2022 History of Present illness Narrative Hermes; can you order biolgical labs,esr, crp. If patient is agreeable, please start her on HCQ 400mg/day documented in this encounter [facility] 01-11-2022 History of Present illness Narrative Images from the original note were not included. Telephone Visit Via Phone Call I discussed risks, benefits and alternatives of a telephone visit telemedicine consultation with the patient (and any accompanying persons) including the risks that the patient's personal health details and medical records will be discussed over real-time, synchronous, interactive audio technology, the visit will not be recorded without the express consent of both the provider and the patient, and that there are inherent diagnostic limitations compared to [id number] evaluations. We elected to proceed with the telephone visit telemedicine consultation. I have spent 30 minutes with the patient reviewing the HPI, reviewing and updating the medical records & coordination of care. The patient indicates understanding of these issues and agrees with the plan. RHEUMATOLOGY EST PATIENT VISIT Patients name: Barrington Beyer : 1985 Today's date: 01/11/2022 Reason for visit: Referred by Dr. Kauffman for arthralgia Disease summary: work up for inflammatory arthritis neg so far Status: . Serology: +ve -ve RF,CCP Radiology:No inflammatory arthritis, DJD Current Meds: Pain control: Prior Meds: HPC: This is a 36 y.o. female with a pmhx of anxiety, depression, fatty liver, hyperlipidemia, hypothyroidism, asthma, b/l carpal tunnel syndrome s/p b/l release, GERD who presents for evaluation of arthralgia. Patient mostly experiences significant pain in both her hands, wrists and knees. She is beginning to experience intermittent [id number] in both of her hands and wrists. She does report some pain going from her forearm into her wrists and radiating down her hands. She denies any significant joint swelling or redness. She has some morning stiffness however it is short-lived. Today the patient is in a soft cast and ambulating with a scooter. She sustained a distal fibular fracture nearly 1 week ago, patient was seen in urgent care by nurse practitioner and a soft cast was applied. She was advised to follow-up with orthopedic. Patient has not yet been evaluated by orthopedics and has had difficulty finding an orthopedic physician. Apr 2021 CTS 2018 which was performed at [facility]. Patient also had EMG at this facility also. She had symptoms for many years before she underwent surgery. She reports she still has significant bilateral hand pain which sometimes wakes her up in the middle night with spasms. Pain going through her hand, no overt redness/swelling. No erosions noted on x-ray. Negative RF/CCP. ESR/CRP not elevated. Other joints affected. Prior Rheum appts: Nil Interim: Still c/o all over body pain, back pain. B/l hip pain worse after standing and when she tries to sleep on either side Ongoing b/l hand pain, right worse than left. I have reviewed the patient's medical history in detail and updated the computerized patient record. Past Medical History: Diagnosis Date Anxiety Arthritis Asthma Chronic pain disorder Depression Fibromyalgia, primary Fibromyoma GERD (gastroesophageal reflux disease) Hyperlipidemia Hypothyroidism Sleep apnea, obstructive no cpap SVT (supraventricular tachycardia) ([facility]) Past Surgical History: Procedure Laterality Date AR'SCOPY ANKLE W/STABILIZATION Right 08/19/2021 Procedure: Ankle Arthroscopy with lateral ankle stabilization, Right; Surgeon: Chris Brown DPM; Location: Main OR; Service: Podiatry CARPAL TUNNEL RELEASE Bilateral SECTION HYSTERECTOMY Social History Tobacco Use Smoking status: Former Smokeless tobacco: Never Vaping Use Vaping Use: Never used Substance Use Topics Alcohol use: No Drug use: Never Comment: former meth user 6 years ago Family History Problem Relation Age of Onset Melanoma Father Heart disease Father No Known Problems Mother Cancer Sister Seizures Brother No Known Problems Brother No Known Allergies No outpatient medications have been marked as taking for the 01/11/22 encounter (Appointment) with Colleen Cooley MD. Review of Systems: General Constitutional: Denied fevers, chills, anorexia, weight loss, or night sweats Eyes: denied blurry vision, no dry eyes, no RP ENT: denied nasal drainage, sinus pressure, nasal ulcers Mouth: denied oral ulcers, dry mouth Lymphatics: no new adenopathy in cervical, supraclavicular, axillary, inguinal regions Respiratory: no cough, SOB CV: denied palpitations, chest pain/pressure, PND, orthopnea. GI: denied abd pain, n/v/d, constipation, melena. : denied dysuria, urgency, frequency or hematuria. Skin: no rashes or lesions Musculoskeletal: as per HPI Hematologic/lmmunologic: no adenopathy, bleeding, easy bruisiality or recurrent infection. Neurology: Denied new headaches, speech/balance/coordination problems. Denied new focal numbness or weakness of extremities Psych: denied anxiety, depression or mood swings A 10 point review of systems was completed. Physical Exam: There were no vitals taken for this visit. DATA: I have reviewed lab work and imaging. Labs:reviewed. Imaging: reviewed. Health Maintenance Due Topic Date Due Tetanus: Every 10yrs Never done Pap Smear Never done Wellness Visit Never done Pneumococcal Vaccine: Ped or At-Risk (1 - PCV) Never done Depression Screening (PHQ-2/9) Never done HIV Screening Never done Hepatitis C Screening Never done COVID-19 Vaccine (3 - Booster for Pfizer series) 04/30/2021 Assessment & Plan Bilateral hand pain - w/u for inflammatory arthritis is so far negative. Reports right hand worse than left - Plan: MR Hand Right Without Contrast to assess for synovitis - Ambulatory referral to Neurology for b/l UE EMG - Asked patient to obtain [facility] EMG records from 2018 - Asked her to obtain outstanding lab work ordered from prior visit Trochanteric bursitis of both hips - Plan: Can have these areas injected with CONTROLS DESIGN ENGINEER Mary Kohli The patient indicates understanding of these issues and agrees with the plan. Return to clinic after she obtains EMG, MRI and THI panel Telehealth appointments ok. Colleen Cooley MD [employer] Note: To expedite correspondence this note was generated by [employer] voice recognition software. Some grammatical or spelling errors may occur using the system. documented in this encounter [facility] 10-02-2021 History of Present illness Narrative Images from the original note were not included. Established Patient Visit Chris Brown DPM Patient Name: Barrington Beyer. . Date of : 1985, 36 y.o.. Gender: female. Subjective: Patient is a pleasant 36-year-old female who presents to clinic with her spouse 5.5 weeks status post right ankle arthroscopy with lateral ankle ligament repair. Patient states that she has been doing well and has maintained nonweightbearing status as instructed. No new pedal complaints at this time. Denies fevers, chills, nausea, vomiting, chest pain, shortness of breath, or any other constitutional symptoms. Physical Examination: BP 131/86 (BP Location: Right arm, Patient Position: Sitting, BP Cuff Size: Adult) Pulse 87 Temp 98 F (36.7 C) (Oral) General Appearance: Alert, cooperative, no distress, appears stated age. Podiatric Exam Vascular: DP and PT pulses are palpable. Capillary refill time is brisk to distal digits. Skin temperature is warm to warm from proximal tibial tuberosity to distal digit. Neurological: Gross sensation is intact. Protective sensation is intact. Dermatologic: Surgical incision sites are well healed. No surrounding erythema, edema or any acute signs of infection. Interdigital spaces are clean dry and intact. Musculoskeletal: No appreciable tenderness on palpation along the surgical incision site. Patient is able to wiggle digits ankle joint range of motion is intact. Muscle strength is deferred at this. Compartments soft and compressible. No calf pain Assessment: 1. Sprain of anterior talofibular ligament of right ankle, subsequent encounter Ambulatory Ref to [place] (PT/OT/ST) 2. Ankle instability, right Ambulatory Ref to [place] (PT/OT/ST) Imaging: Right ankle 3 views weightbearing radiographs were ordered and interpreted as follows: No fractures or dislocations noted Ankle mortise is anatomical alignment. No varus or valgus deformity Plan: Patient was seen and evaluated. Discussed all clinical findings I ordered, interpreted, and discussed right ankle radiographic findings with patient as noted above. Patient is doing well postoperatively. No pain noted on exam. At this time, patient may begin weightbearing as tolerated in a tall cam boot. An order for physical therapy was placed. This is medical necessary to regain proper function of right ankle motion and gait. Physical therapy sessions are 2-3 times per week and up to 4 weeks. Follow-up in 4 weeks for evaluation All questions were answered to patient satisfaction. Patient understands to call with any questions or concerns. Chris Brown DPM, MS Podiatric Physician & Surgeon documented in this encounter [facility] 08-23-2021 History of Present illness Narrative Images from the original note were not included. Established Patient Visit Chris Brown DPM Patient Name: Barrington Beyer. . Date of : 1985, 36 y.o.. Gender: female. Subjective: Patient is a pleasant 36-year-old female who presents to clinic with her spouse postop day #4 status post right ankle arthroscopy with lateral ankle ligament repair. Patient states that she has been doing well. She has been elevating and icing as instructed. She has also been nonweightbearing in her knee scooter for ambulation. Reports that her pain is well controlled. No new pedal complaints at this time. Denies fevers, chills, nausea, vomiting, chest pain, shortness of breath, or any other constitutional symptoms. Physical Examination: BP 133/87 (BP Location: Left arm, Patient Position: Sitting, BP Cuff Size: Adult) Pulse (!) 105 Temp 98.6 F (37 C) (Oral) General Appearance: Alert, cooperative, no distress, appears stated age. Podiatric Exam Vascular: DP and PT pulses are palpable. Capillary refill time is brisk to distal digits. Skin temperature is warm to warm from proximal tibial tuberosity to distal digit. Neurological: Gross sensation is intact. Protective sensation is intact. Dermatologic: Surgical incision sites are well coapted with sutures intact. No surrounding erythema, edema or any acute signs of infection. Interdigital spaces are clean dry and intact. Musculoskeletal: Mild tenderness on palpation along the surgical incision site. Patient is able to wiggle digits ankle joint range of motion is intact. Muscle strength is deferred at this. Compartments soft and compressible. No calf pain Assessment: 1. Sprain of anterior talofibular ligament of right ankle, subsequent encounter 2. Ankle instability, right Imaging: None at this visit Plan: Patient was seen and evaluated. Discussed all clinical findings Patient is doing well postoperatively. Pain is well controlled. New dressing was applied to the right foot surgical incisions using Betadine paint, 4 x 4, Kerlix and Mike bandage. A tall cam boot was prescribed, dispensed return the office. It is medically necessary for offloading of the right extremity at this time. Patient is to continue nonweightbearing status and use her knee scooter for ambulation. Patient to treat his tall cam boot as if it is a cast. Encourage patient to continue icing and waiting. Follow-up in 2 weeks for evaluation and removal of sutures. Chris Brown DPM, MS Podiatric Physician & Surgeon documented in this encounter [facility] 08-19-2021 Surgical operation note Images from the original note were not included. Anesthesia Post Evaluation PACU Vitals 08/19/2021 1829 - 08/19/2021 1839 08/19/2021 1833 BP: 129/57 Temp: 36.3 C Pulse: 117 Resp: 16 SpO2: 100 % MAP (mmHg): 86 * * Refer to nursing documentation for PACU vitals * * Patient participation: patient participated Mental status: sleepy but conscious Pain management: adequate Anesthetic complications: no Nausea / vomiting: no Cardiovascular status: hemodynamically stable Respiratory / airway status: airway patent and nasal cannula Postoperative hydration: acceptable Comment: Patient has satisfactorily recovered from her anesthetic. Associated Order(s): ETT Airway ETT Airway Mask ventilation: ventilated by mask Technique: video laryngoscopy Type: cuffed oral Tube size: 7 mm Final laryngoscope: Mac 3 video laryngoscope Location: oral Final grade: 1 Insertion attempts: 1 Placement verification: auscultation, symmetrical chest wall movement and end tidal CO2 Secured at: 21 cm (measured from the lips) Secured by: tape Bite block: soft Lip/tooth/tongue trauma: no *See MAR for medication administration Associated attestation - Kendell Hinojosa MD - 08/19/2021 7:30 PM EST I have personally seen and examined the patient. I have reviewed the note and concur with the documentation of Barrington Beyer. ANESTHESIA PREPROCEDURE EVALUATION Anesthesia Plan ASA: 3 Type: general Airway: endotracheal tube Induction: intravenous Anesthetic plan and risks as outlined in the consent discussed with: patient Plan discussed with: UI SOFTWARE ENGINEER Physical Exam Airway Mallampati: II TM Distance: >3 FB Neck ROM: full Mouth opening: >3 FB Cardiovascular - normal Rhythm: regular Pulmonary - normal Breath sounds are clear to auscultation Neurological Mental Status: alert Upper extremities strength is normal and sensation is normal Lower extremities: strength is normal and sensation is normal Dental Dental exam is normal and age appropriate Review of Systems / Medical History - Reviewed: patient summary, anesthesia history, nursing notes, medical history, H&P and labs / results - No history of anesthetic complications Pulmonary Positive: asthma sleep apnea (noncompliant) Neurological / Psychological Positive: neuromuscular disease depression, anxiety Cardiovascular Exercise tolerance: good Positive: hyperlipidemia Gastrointestinal / Hepatic / Renal NPO Status > 8 hours Positive: GERD and well controlled Endocrine / Musculoskeletal Positive: hypothyroidism, obesity, chronic pain documented in this encounter [facility] Events Date Time Event Comment 08/19/2021 1352 1535 AN Equip Check 1535 An Start 1535 Patient Verification 1537 An Start Data 1539 An Induction 1543 An Intubation 1545 Anesthesia Ready 1815 [facility] OR 03 1824 An Extubation 1829 an stop data 1838 Handoff I completed my SBAR handoff to the receiving nurse in the PACU/unit. 1839 An Stop Meds * Agents No agents on file. * Blood No blood administrations on file. Lines, Drains, and Airways Type Details Placement Removal Wound 08/19/21; 1; Surgica l Wou; Pre-tibial; Distal, Right; Sutures; betadine, xeroform, kerlix, plaster splint, mike wrap 08/19/21 0000 by Robert Song RN Peripheral IV Placement Date: 08/10 ; Placement Time: 1228; Orientation: Anterior, Proximal, Right; Location: Forearm; Site Prep: Chlorhexidine ; Local Anes: None; Patient Tolerance: Tolerated well 08/19/21 1228 by Rubia Pfeiffer RN ETT Placement Date: 08/10 ; Placement Time: 155 (created via procedure documentation); Mask Ventilation: Ventilated by mask; Type: Cuffed, Oral; Tube Size: 7 mm; Grade View: 1; Insertion Attempts: 1; Removal Date: 08/19/21; Removal Time: 182308/19/21 155 by EMMA Rangel 08/19/21 182 by EMMA Rangel documented in this encounter [id number] History of Present illness Narrative* Chris Brown DPM - 08/19/2021 6:41 AM EST Images from the original note were not included. Chris Brown DPM Patient Name: Barrington Beyer. . Date of : 1985, 36 y.o.. Gender: female. Subjective: Patient is a pleasant 35-year-old female who presents to clinic for her preoperative History and Physical evaluation. Patient has failed many conservative options for treatment of her lateral ankle instability and pain. Patient states that she continues to be in pain daily. No other pedal complaints at this time.Denies fevers, chills, nausea, vomiting, chest pain, shortness of breath, or any other constitutional symptoms. Past Medical History: Diagnosis Date Anxiety Arthritis Asthma Chronic pain disorder Depression Fibromyalgia, primary Fibromyoma GERD (gastroesophageal reflux disease) Hyperlipidemia Hypothyroidism Sleep apnea, obstructive no cpap SVT (supraventricular tachycardia) (HCC) Past Surgical History: Procedure Laterality Date CARPAL TUNNEL RELEASE Bilateral SECTION HYSTERECTOMY Social History Socioeconomic History Marital status: Tobacco Use Smoking status: Former Smoker Smokeless tobacco: Never Used Vaping Use Vaping Use: Never used Substance and Sexual Activity Alcohol use: No Drug use: Never Comment: former meth user 6 years ago Physical Examination: BP 139/84 (BP Location: Left arm, Patient Position: Sitting, BP Cuff Size: Adult) Pulse (!) 102 Temp 99.1 F (37.3 C) (Oral) General Appearance: Alert, cooperative, no distress, appears stated age. Podiatric Exam Vascular: DP and PT pulses are palpable 2/4. Capillary refill time is brisk to distal digits. Skin temperature is warm to warm from proximal tibial tuberosity to distal digit. Neurological: Gross sensation is intact. Protective sensation is intact. Dermatologic: Mild localized edema noted to the anterior lateral right ankle. No ecchymosis. No open wounds. Interdigital spaces are clean dry and intact. Musculoskeletal: Pain on palpation over the ATFL and slightly over the CFL. No pain to the PT FL. Positive anterior drawer test. Ankle instability and laxity noted with inversion and eversion. Negative talar tilt test. Muscle strength is 5/5 to dorsiflexors, plantar flexors, inverters and everters.Compartments soft and compressible. No calf pain Assessment: 1. Sprain of anterior talofibular ligament of right ankle, subsequent encounter 2. Ankle instability, right 3. Elective surgery Imaging: Right ankle 3 views weightbearing radiographs were reviewed as follows: Well-corticated avulsion fracture of the medial malleolus noted with minimal displacement. Avulsion fracture of the distal fibula noted with no displacement. Ankle mortise anatomic. No varus or valgus deformity noted. MR ANKLE RIGHT WITHOUT CONTRAST There is an old corticated density adjacent to the inferior tip of the fibula/lateral malleolus which was also seen on the x-rays 02/22/2021 consistent with old avulsion injury. Remote sprain/attenuation of the ATFL noted. No fracture or osteochondral lesion. Physiologic tibiotalar and subtalar joint fluid seen. The sinus tarsi appears within normal limits. Musculature is maintained. Small calcaneal spurring at the Achilles and plantar fascia attachments shown. Plan: Patient was seen and evaluated. Discussed all clinical findings. I reviewed right ankle radiographic findings with patient as noted above. Reviewed and discussed patient's MRI results as noted above. Patient has exhausted all conservative options and management for her right ankle sprain and instability including offloading, icing, stretching, wearing good supportive shoes, anti-inflammatories, physical therapy, etc. Discussed with patient benefits versus risks of surgery including residual pain, numbness, tingling, infection, recurrence, etc. Despite these risks, patient would like to proceed with surgical intervention. Reviewed patient's preoperative anesthesia / preadmissionclearance. Reviewed patient's preoperative labs: CBC with diff and BMP are within normal limits Patient is full vaccinated for covid and does not require a covid test preoperatively. All questions were answered to patient satisfaction. Patient understands to call with any questionsor concerns. Plans to proceed with surgery on 08/19/2021 Chris Brown DPM, MS Podiatric Physician & Surgeon documented in this [id number] History of Present illness Narrative* Chris Brown DPM - 06/28/2021 9:48 AM EST Chris Brown DPM Patient Name: Barrington Beyer. . Date of : 1985, 36 y.o.. Gender: female. Subjective: Patient is a pleasant 35-year-old female who presents to clinic for follow-up evaluation of her right ankle sprain and pain that started on 01/30/2021 after she twisted her right ankle. Patient has been offloading using a tall cam boot with minimal improvement. Patient states that she went to physical therapy a couple of times and then she had a in her family and was not able to continue physical therapy. She states that she did do exercise at home and felt that her ankles are grinding. She continues to have pain daily. Patient is here to discuss her MRI results. No other pedal complaints at this time.Denies fevers, chills, nausea, vomiting, chest pain, shortness of breath, or any other constitutional symptoms. Physical Examination: BP 125/79 (BP Location: Left arm, Patient Position: Sitting, BP Cuff Size: Adult) Pulse 88 Temp98.3 F (36.8 C) (Oral) General Appearance: Alert, cooperative, no distress, appears stated age. Podiatric Exam Vascular: DP and PT pulses are palpable 2/4. Capillary refill time is brisk to distal digits. Skin temperature is warm to warm from proximal tibial tuberosity to distal digit. Neurological: Gross sensation is intact. Protective sensation is intact. Dermatologic: Mild localized edema noted to the anterior lateral right ankle. No ecchymosis. No open wounds. Interdigital spaces are clean dry and intact. Musculoskeletal: Pain on palpation over the ATFL and slightly over the CFL. No pain to the PT FL. Positive anterior drawer test. Negative talar tilt test. Muscle strength is 5/5 to dorsiflexors, plantar flexors, inverters and everters. Compartments soft and compressible. No calf pain Assessment: 1. Sprain of anterior talofibular ligament of right ankle, subsequent encounter 2. Acute right ankle pain Imaging: Right ankle 3 views weightbearing radiographs were reviewed as follows: Well-corticated avulsion fracture of the medial malleolus noted with minimal displacement. Avulsion fracture of the distal fibula noted with no displacement. Ankle mortise anatomic. No varus or valgus deformity noted. MR ANKLE RIGHT WITHOUT CONTRAST There is an old corticated density adjacent to the inferior tip of the fibula/lateral malleolus which was also seen on the x-rays 02/22/2021 consistent with old avulsion injury. Remote sprain/attenuation of the ATFL noted. No fracture or osteochondral lesion. Physiologic tibiotalar and subtalar joint fluid seen. The sinus tarsi appears within normal limits. Musculature is maintained. Small calcaneal spurring at the Achilles and plantar fascia attachments shown. Plan: Patient was seen and evaluated. Discussed all clinical findings. I reviewed right ankle radiographic findings with patient as noted above. Reviewed and discussed patient's MRI results as noted above. At this time, patient has exhausted all conservative options and management for right ankle sprain including offloading, icing, stretching, wearing good supportive shoes, anti-inflammatories, physical therapy, etc. Discussed with patient benefits versus risks of surgery including residual pain, numbness, tingling, infection, etc. Despite the risk, patient would like to proceed with surgical intervention. Patient understand that she will need to be pre-operative surgical testing and labs prior to proceeding with surgery. A case request was placed, along with preoperative orders for CBC with differential, BMP. Patient understand that a negative Covid test is required prior to proceeding with surgery. A Covidtest was ordered accordingly. All questions were answered to patient satisfaction. Patient understands to call with any questionsor concerns. Patient will follow up in 1 week after completion of labs for preoperative H&P evaluation. Tentative plans to proceed with surgery at the end of August 2021. Chris Brown DPM, MS Podiatric Physician & Surgeon documented in this [id number] History of Present illness Narrative* Chris Brown DPM - 03/23/2021 11:09 AM EDT Images from the original note were not included. Chris Brown DPM Patient Name: Barrington Beyer. . Date of : 1985, 35 y.o.. Gender: female. Subjective: Patient is a pleasant 35-year-old female who presents to clinic for follow-up evaluation of her right ankle sprain and pain that started on 01/30/2021 after she twisted her right ankle. Patient has been offloading using a tall cam boot with minimal improvement. She has been taking meloxicam once daily as instructed without significant improvement. No other pedal complaints at this time.Denies fevers, chills, nausea, vomiting, chest pain, shortness of breath, or any other constitutional symptoms. Physical Examination: Temp 98.4 F (36.9 C) General Appearance: Alert, cooperative, no distress, appears stated age. Podiatric Exam Vascular: DP and PT pulses are palpable 2/4. Capillary refill time is brisk to distal digits. Skin temperature is warm to warm from proximal tibial tuberosity to distal digit. Neurological: Gross sensation is intact. Protective sensation is intact. Dermatologic: Mild localized edema noted to the anterior lateral right ankle. No ecchymosis. No open wounds. Interdigital spaces are clean dry and intact. Musculoskeletal: Pain on palpation over the ATFL and slightly over the CFL. No pain to the PT FL. Positive anterior drawer test. Negative talar tilt test. Muscle strength is 5/5 to dorsiflexors, plantar flexors, inverters and everters. Compartments soft and compressible. No calf pain Assessment: 1. Sprain of anterior talofibular ligament of right ankle, initial encounter Ambulatory Ref to [place] (PT/OT/ST) 2. Acute right ankle pain Ambulatory Ref to [place] (PT/OT/ST) Imaging: Right ankle 3 views weightbearing radiographs were reviewed as follows: Well-corticated avulsion fracture of the medial malleolus noted with minimal displacement. Avulsion fracture of the distal fibula noted with no displacement. Ankle mortise anatomic. No varus or valgus deformity noted. Plan: Patient was seen and evaluated. Discussed all clinical findings. I reviewed right ankle radiographic findings with patient as noted above. Patient has an ankle sprain involving the ATFL ligament and possible CFL ligament, in addition to pain along the medial malleoli/deltoid ligaments. At this time, patient has failed to improve with offloading using her tall cam boot. Discussed prescribing her physical therapy. An order for physical therapy was placed. This is medical necessary to regain proper function of right ankle. Physical therapy sessions are 2-3 times per week and up to 4 weeks. If patient fails to improve or worsen with physical therapy, an MRI will be ordered for evaluation of her ligamentous injury in 4 surgical planning. In the meantime, patient may continue to utilize her tall cam boot and taking meloxicam to help alleviate pain and discomfort. All questions were answered to patient satisfaction. Patient understands to call with any questionsor concerns. Follow-up in 4 weeks for evaluation. Chris Brown DPM, MS Podiatric Physician & Surgeon documented in this [id number] History of Present illness Narrative* Patient is a 35-year-old female who twisted her ankle last night walking. She states she just twisted her ankles in the past because she states she is clumsy however at this time she is having tingling in her foot. She has a lot of swelling in the lateral aspect of her foot. She is not been taking anything for the pain she is just use an Mike wrap and ice for swelling. * Gen: No fatigue, fever, sweats. * Head: No headache, trauma. * Eyes: No vision loss, double vision, drainage, eye pain. * ENT: No hearing changes, pain, epistaxis, congestion * Cardiac: No chest pain * Pulmonary: No shortness of breath, pleuritic pain, cough * Heme/lymph: No swollen glands * GI: No abdominal pain, nausea, vomiting, diarrhea * : No dysuria, frequency, urgency, hematuria * Musculoskeletal: POSITIVE right lower leg limb pain, joint pain, back pain, joint swelling or stiffness. * Skin: No rashes, pruritus, lumps, lesions. * Neuro: No Numbness, tingling, or weakness. * Psych: No anxiety * Review of systems is otherwise negative unless stated above or in history of present illness. * Ankle Injury: * Gen.: Vitals noted. No distress. Afebrile. * Neck: Supple. No adenopathy. * Cardiac: Regular rate rhythm. No murmur. * Pulmonary: Equal breath sounds bilaterally. No adventitious breath sounds. * Abdomen: Soft, nontender, nonsurgical. Normoactive bowel sounds. * Back: Nontender throughout. * Lower extremity: There is no tenderness over the medial malleolus. There is POSITIVE tenderness over the right lateral malleolus. There is no tenderness over the anterior ankle mortise. The foot is nontender. The skin is intact. Is neurovascularly intact distally. The remainder of the extremity is nontender, specifically, nontender over the knee and fibular head. * Treatment: * [facility] Work Phone: [phone] 669-431308-16-2021 History of Present illness Narrative* Chris Brown DPM - 02/22/2021 8:28 AM EDT Images from the original note were not included. NEW Patient Visit Chris Brown DPM Patient Name: Barrington Beyer. . Date of : 1985, 35 y.o.. Gender: female. Subjective: Patient is a pleasant 35-year-old female who presents to clinic complaining of right ankle pain. Patient states that on 01/30/2021, she twisted her right ankle. She was then diagnosed with a distal fibular fracture. She states that she has not improved in the last 2-1/2 weeks. She saw previous orthopedic doctors who gave her a boot for offloading. She states that she takes ibuprofen for pain relief. No other pedal complaints at this time.Denies fevers, chills, nausea, vomiting, chest pain, shortness of breath, or any other constitutional symptoms. Physical Examination: BP 133/87 Pulse 76 Temp 97.3 F (36.3 C) (Infrared) General Appearance: Alert, cooperative, no distress, appears stated age. Podiatric Exam Vascular: DP and PT pulses are palpable 2/4. Capillary refill time is brisk to distal digits. Skin temperature is warm to warm from proximal tibial tuberosity to distal digit. Neurological: Gross sensation is intact. Protective sensation is intact. Dermatologic: Mild localized edema noted to the anterior lateral right ankle. No ecchymosis. No open wounds. Interdigital spaces are clean dry and intact. Musculoskeletal: Pain on palpation over the ATFL and slightly over the CFL. No pain to the PT FL. Positive anterior drawer test. Negative talar tilt test. Muscle strength is 5/5 to dorsiflexors, plantar flexors, inverters and everters. Compartments soft and compressible. No calf pain Assessment: 1. Sprain of anterior talofibular ligament of right ankle, initial encounter 2. Acute right ankle pain Imaging: Right ankle 3 views weightbearing radiographs were ordered and interpreted as follows: Well-corticated avulsion fracture of the medial malleolus noted with minimal displacement. Avulsion fracture of the distal fibula noted with no displacement. Ankle mortise anatomic. No varus or valgus deformity noted. Plan: Patient was seen and evaluated. Discussed all clinical findings. I ordered, interpreted, and discussed right ankle radiographic findings with patient as noted above. Patient has an ankle sprain involving the ATFL ligament and possible CFL ligament. Recommended patient ambulates and offloads in the tall cam boot for 4 more weeks. A compression Mike bandage was provided to the patient to wear on her right ankle to help control pain and edema. Additionally, meloxicam was prescribed and sent to her pharmacy to help decrease pain and inflammation. All questions were answered to patient satisfaction. Patient understands to call with any questionsor concerns. If pain fails to improve or worsen, an order for physical therapy will be placed. Follow-up in 4 weeks for evaluation. Chris Brown DPM, MS Podiatric Physician & Surgeon documented in this [id number] History of Present illness Narrative* Exten, Jeanine Watters MD - 02/16/2021 10:15 AM EDT Impression: 1. Closed fracture of distal end of right fibula with routine healing, unspecified fracture morphology, subsequent encounter Ambulatory referral to Orthopedics The above diagnosis as well as the options for treatment were discussed with Barrington in clinic today.I recommended that this patient be placed in an ASO brace. I recommend she get into physical therapy. This is an avulsion fracture at the tip of her fibula. She would heal best with motion and strengthening as well as proprioception and gait. She will follow-up after physical therapy if not improved. Barrington Beyer was agreeable to the plan and there were no learning barriers encountered. Follow-Up: After PT if not improved. Subjective: Barrington Beyer is a 35 y.o. female seen in consultation at the request of Colleen Cooley MD for right distal fibula fracture. This patient was walking on 02/02/2021 when she hit a dip in the asphalt. She thought she had a sprain. She walked on it for a few days. However she developed tingling and felt [id number] in her foot. Patient that she went to emergency department. She went to [facility] in [place]. X-rays were performed. She was diagnosed with a distal fibula fracture. She was immobilized in a splint. She then saw one of my partners Dr. Cooley. [facility] This patient works in [email or web address]. Tobacco Use: Medium Risk Smoking Tobacco Use: Former Smoker Smokeless Tobacco Use: Never Used Past Medical History: Diagnosis Date Anxiety Asthma Depression Hypothyroidism and Past Surgical History: Procedure Laterality Date SECTION Past medical, past surgical, family history, medications, allergies, and smoking status reviewed and updated as appropriate in EPIC. A 13-system review of systems was completed by Barrington kebede and reviewed by Dr. Jeanine Best during the visit. This has been initialed, dated, and scanned to this encounter. Objective: Vitals: 02/16/21 1021 BP: (!) 145/90 Pulse: 89 Weight: 91.2 kg (201 lb) Height: 4' 11 General: no acute distress Appearance: Appears stated age Neurologic: Patient is alert and oriented x3 pleasant and cooperative. Mood and affect: Normal HEENT: normocephalic, attraumatic. Extraocular muscles grossly normal. Pulm: respiratory effort is normal Foot and Ankle - Physical Exam Standing: Not performed Deformities: Swelling about the lateral ankle Palpation: Tenderness to palpation at the distal tip of the fibula as well as the CFL and ATFL. No tenderness of the medial malleolus or deltoid ligament. ROM Ankle: decreased Subtalar: decreased MTP: normal Muscle/Tendons Strength EHL FHL motor intact. Pulses Dorsal Pedis: Present 2+ Tibial Artery: Present 2+ Nerves Tibial Nerve Lateral Plantar: intact Medial Plantar: intact Superficial Peroneal: intact Deep Peroneal: intact Sural: intact Saphenous: intact Skin Intact Radiographs: Xrays from 02/09/2021 were reviewed today in clinic and discussed with the patient. A formal read will be perfomed by radiology. They were also interpreted by myself. My findings and impressions can befound below. Radiographs of the right ankle show an avulsion fracture of the distal tip of the fibula. No widening of the ankle mortise. No medial malleolar fracture. No other acute fractures dislocations. No osteochondral injuries. CC: MD Rissa Adams MD documented in this [id number] History of Present illness Narrative* Colleen Cooley MD - 02/09/2021 9:30 AM EDT Images from the original note were not included. RHEUMATOLOGY NEW PATIENT VISIT Patients name: Barrington Beyer : 1985 Today's date: 02/09/2021 Reason for visit: Referred by Dr. Kauffman for arthralgia HPC: This is a 35 y.o. female with a pmhx of anxiety, depression, fatty liver, hyperlipidemia, hypothyroidism, asthma, b/l carpal tunnel syndrome s/p b/l release, GERD who presents for evaluation of arthralgia. Patient mostly experiences significant pain in both her hands, wrists and knees. She is beginning to experience intermittent [id number]-jfd-tqlyuzt in both of her hands and wrists. She does report some pain going from her forearm into her wrists and radiating down her hands. She denies any significant joint swelling or redness. She has some morning stiffness however it is short-lived. Today the patient is in a soft cast and ambulating with a scooter. She sustained a distal fibular fracture nearly 1 week ago, patient was seen in urgent care by nurse practitioner and a soft cast wasapplied. She was advised to follow-up with orthopedic. Patient has not yet been evaluated by orthopedics and has had difficulty finding an orthopedic physician. Prior Rheum appts: Nil Interim: I have reviewed the patient's medical history in detail and updated the computerized patient record. Past Medical History: Diagnosis Date Anxiety Asthma Depression Hypothyroidism Past Surgical History: Procedure Laterality Date SECTION Social History Tobacco Use Smoking status: Former Smoker Smokeless tobacco: Never Used Vaping Use Vaping Use: Never used Substance Use Topics Alcohol use: No Drug use: Never Comment: former meth user 6 years ago Family History Problem Relation Age of Onset Melanoma Father No Known Allergies Outpatient Medications Marked as Taking for the 02/09/21 encounter (Office Visit) with Colleen Cooley MD Medication Sig Dispense Refill atorvastatin (LIPITOR) 40 MG tablet Take 40 mg by mouth daily . cetirizine 10 mg cap Take 10 mg by mouth at bedtime . cyclobenzaprine (FLEXERIL) 10 MG tablet Take 10 mg by mouth as needed . diltiazem (CARDIZEM CD) 120 MG 24 hr capsule Take 120 mg by mouth daily. fenofibrate (TRICOR) 145 MG tablet Take 145 mg by mouth daily . fluticasone (FLONASE) 50 mcg/actuation nasal spray 2 sprays into each nostril daily. levothyroxine (SYNTHROID, LEVOTHROID) 75 MCG tablet Take 75 mcg by mouth daily. omeprazole (PRILOSEC) 40 MG capsule Take 40 mg by mouth daily. pregabalin (LYRICA) 50 MG capsule Take 50 mg by mouth at bedtime . venlafaxine 225 MG TR24 Take 225 mg by mouth daily . Review of Systems: General Constitutional: Denied fevers, chills, anorexia, weight loss, or night sweats Eyes: denied blurry vision, no dry eyes, no RP ENT: denied nasal drainage, sinus pressure, nasal ulcers Mouth: denied oral ulcers, dry mouth Lymphatics: no new adenopathy in cervical, supraclavicular, axillary, inguinal regions Respiratory: no cough, SOB CV: denied palpitations, chest pain/pressure, PND, orthopnea. GI: denied abd pain, n/v/d, constipation, melena. : denied dysuria, urgency, frequency or hematuria. Skin: no rashes or lesions Musculoskeletal: as per HPI Hematologic/lmmunologic: no adenopathy, bleeding, easy bruisiality or recurrent infection. Neurology: Denied new headaches, speech/balance/coordination problems. Denied new focal numbness orweakness of extremities Psych: denied anxiety, depression or mood swings A 10 point review of systems was completed. Physical Exam: BP (!) 143/83 Pulse 92 Wt 91.2 kg (201 lb) BMI 40.60 kg/m Gen: NAD, resting comfortably,Alert, cooperative, no distress, appears stated age HEENT: NCAT, no temporal wasting, EOMI, perrl, anicteric sclerae, mmm, no op lesions Neck: supple, no thyromegaly or LAD, no bruits Lymphatics: no cervical, axillary, or inguinal adenopathy Chest: Good a/e b/l, no added sounds, no respiratory distress CV: RRR, no m/r/g, normal S1, S2 Abd: soft, nontender, nondistended, +BS, no hepatosplenomegaly Ext: no clubbing, cyanosis or edema MSK: No synovitis of the MCPs or PIPs. Crepitus of the knees no effusion or warmth. Skin: no rashes or lesions Neuro: no focal deficits, moves all four extremities Psych: Mood and affect appropriate DATA: I have reviewed lab work and imaging. Labs:reviewed. Imaging: reviewed. Health Maintenance Due Topic Date Due Tetanus: Every 10yrs Never done Pap Smear Never done Wellness Visit Never done Depression Screening (PHQ9) Never done COVID-19 Vaccine (1) Never done HIV Screening Never done Hepatitis C Screening Never done Assessment & Plan Arthralgia-no evidence of inflammatory arthritis today on exam, no obvious synovitis. We will do a work-up for rheumatoid arthritis. - Plan: Rheumatoid factor, CCP Antibody, Sedimentation Rate, C-reactive protein, XR Hands BilateralBall Catchers 2 Views, XR Knees Standing Bilateral AP/ LAT Low vitamin D level - Plan: Vitamin D, Total, 25-OH Closed fracture of distal end of right fibula with routine healing -Needs to be reviewed by orthopedics. -X-rays ordered as per Dr. Best -Referral placed for orthopedic surgeon Dr. Best who will see her early next week. The patient indicates understanding of these issues and agrees with the plan. Return to clinic in 2-3 month(s) Telehealth appointments ok. Colleen Cooley MD [employer] Note: To expedite correspondence this note was generated by [employer] voice recognition software. Somegrammatical or spelling errors may occur using the system. documented in this [id number] History of Present illness Narrative* Patient is a 35-year-old female who twisted her ankle last night walking. She states she just twisted her ankles in the past because she states she is clumsy however at this time she is having tingling in her foot. She has a lot of swelling in the lateral aspect of her foot. She is not been taking anything for the pain she is just use an Mike wrap and ice for swelling. * Gen: No fatigue, fever, sweats. * Head: No headache, trauma. * Eyes: No vision loss, double vision, drainage, eye pain. * ENT: No hearing changes, pain, epistaxis, congestion * Cardiac: No chest pain * Pulmonary: No shortness of breath, pleuritic pain, cough * Heme/lymph: No swollen glands * GI: No abdominal pain, nausea, vomiting, diarrhea * : No dysuria, frequency, urgency, hematuria * Musculoskeletal: POSITIVE right lower leg limb pain, joint pain, back pain, joint swelling or stiffness. * Skin: No rashes, pruritus, lumps, lesions. * Neuro: No Numbness, tingling, or weakness. * Psych: No anxiety * Review of systems is otherwise negative unless stated above or in history of present illness. * Ankle Injury: * Gen.: Vitals noted. No distress. Afebrile. * Neck: Supple. No adenopathy. * Cardiac: Regular rate rhythm. No murmur. * Pulmonary: Equal breath sounds bilaterally. No adventitious breath sounds. * Abdomen: Soft, nontender, nonsurgical. Normoactive bowel sounds. * Back: Nontender throughout. * Lower extremity: There is no tenderness over the medial malleolus. There is POSITIVE tenderness over the right lateral malleolus. There is no tenderness over the anterior ankle mortise. The foot is nontender. The skin is intact. Is neurovascularly intact distally. The remainder of the extremity is nontender, specifically, nontender over the knee and fibular head. * Treatment: * ankle xray -[facility] Phone: Evaluation note* Diagnosis Pain- Primary [facility] Diagnosis Arthralgia, unspecified joint- Primary Low vitamin D level Closed fracture of distal end of right fibula with routine healing, unspecified fracture morphology, subsequent encounter [facility] Diagnosis Closed fracture of distal end of right fibula with routine healing, unspecified fracture morphology, subsequent encounter- Primary Sprain of right ankle, unspecified ligament, initial encounter [facility] Diagnosis Closed fracture of distal end of right fibula with routine healing, unspecified fracture morphology, subsequent encounter [facility] Diagnosis Sprain of anterior talofibular ligament of right ankle, initial encounter- Primary Acute right ankle pain [facility] Diagnosis Sprain of anterior talofibular ligament of right ankle, initial encounter- Primary Acute right ankle pain [facility] Diagnosis Sprain of anterior talofibular ligament of right ankle, subsequent encounter- Primary Acute right ankle pain Elective surgery Elective surgery Sprain of anterior talofibular ligament of right ankle Acute right ankle pain [facility] Diagnosis Sprain of anterior talofibular ligament of right ankle, subsequent encounter- Primary Ankle instability, right Elective surgery [facility] Diagnosis Sprain of anterior talofibular ligament of right ankle, subsequent encounter- Primary Ankle instability, right [facility] Diagnosis Sprain of anterior talofibular ligament of right ankle, subsequent encounter- Primary Ankle instability, right [facility]* Diagnosis Bilateral hand pain- Primary Trochanteric bursitis of both hips [facility]* Diagnosis Arthralgia, unspecified joint- Primary [facility] Diagnosis Palpitation- Primary Palpitations [facility] Diagnosis Hemorrhage of anus and rectum Hemorrhage of rectum and anus Left lower quadrant pain Abdominal pain, left lower quadrant documented in this encounter [facility] Work Phone: Evaluation note* Diagnosis Abnormal EKG- Primary Nonspecific abnormal electrocardiogram (ECG) (EKG) Palpitation Palpitations documented in this encounter [facility] for visit Narrative* Auth/Cert Specialty Diagnoses / Procedures Referred By Rolando tee Referred To Contact Diagnoses Sprain of anterior talofibular ligament of right ankle, subsequent encounter Acute right ankle pain Elective surgery Sprain of anterior talofibular ligament of right ankle, subsequent encounter [S93.491D] Acute right ankle pain [M25.571] Elective surgery [Z41.9] Procedures CT ANKLE SCOPE,PART SYNOVECTOMY CT ANKLE SCOPE,EXCIS OSTEOCHON DEFCT CT REPAIR 1 COLLAT ANKLE LIGMNT,PRIMARY CT REPAIR COLLAT ANKLE LIGMNT,SECONDARY Ankle Arthroscopy with lateral ankle stabilization, Right Referral ID Status Reason Start Date Expiration Date Visits Re quested Visits Authorized [id number] 1 1 [facility] Summary Purpose Family History No Family History Records FoundUnknown Family Member Name Dates Details Family history of hypertensi on: Father(V17.49, Z82.49) Status:Active Family history of malignant neoplasm: Father(V16.9, Z80.9) Status:Active No pertinent family history: Mother(V49.89, Z78.9) Status:Active Unknown Family Member Name Dates Details No pertinent family history: Mother(V49.89, Z78.9) Status:Active Family history of malignant neoplasm: Father(V16.9, Z80.9) Status:Active Family history of hypertensi on: Father(V17.49, Z82.49) Status:Active Unknown Family Member Name Dates Details No pertinent family history: Mother(V49.89, Z78.9) Status:Active Family history of malignant neoplasm: Father(V16.9, Z80.9) Status:Active Family history of hypertensi on: Father(V17.49, Z82.49) Status:Active Unknown Family Member Name Dates Details No pertinent family history: Mother(V49.89, Z78.9) Status:Active Family history of malignant neoplasm: Father(V16.9, Z80.9) Status:Active Family history of hypertensi on: Father(V17.49, Z82.49) Status:Active Family history of malignant neoplasm of breast: Sister(V16.3, Z80.3) Status:Active Family history of multiple s clerosis: Brother(V17.2, Z82.0) Status:Active Family history of asthma: So n(V17.5, Z82.5) Status:Active Family history of diabetes m ellitus: Aunt, Uncle(V18.0, Z83.3) Status:Active Unknown Family Member Name Dates Details No pertinent family history: Mother(V49.89, Z78.9) Status:Active Family history of malignant neoplasm: Father(V16.9, Z80.9) Status:Active Family history of hypertensi on: Father(V17.49, Z82.49) Status:Active Family history of malignant neoplasm of breast: Sister(V16.3, Z80.3) Status:Active Family history of multiple s clerosis: Brother(V17.2, Z82.0) Status:Active Family history of asthma: So n(V17.5, Z82.5) Status:Active Family history of diabetes m ellitus: Aunt, Uncle(V18.0, Z83.3) Status:Active Advance Directives No Advanced Directives Records FoundDocuments on File Type Date Recorded Patient Examination Scorer Expl anation Advance Directives and Livin g Will 02/09/2021 11:20 AM Documents on File Type Date Recorded Patient Examination Scorer Expl anation Advance Directives and Livin g Will 02/09/2021 11:20 AM Documents on File Type Date Recorded Patient Examination Scorer Expl anation Advance Directives and Livin g Will 06/25/2021 12:32 PM Documents on File Type Date Recorded Patient Examination Scorer Expl anation Advance Directives and Livin g Will 08/10/2021 1:34 PM Documents on File Type Date Recorded Patient Examination Scorer Expl anation Advance Directives and Livin g Will 08/19/2021 11:46 AM Documents on File Type Date Recorded Patient Examination Scorer Expl anation Advance Directives and Livin g Will 08/19/2021 11:46 AM Reason for Referral Status Reason Specialty Diagnoses / Procedures Referred By Contact Referred To Contact Authorized Specialty Services Required/Patie nt[facility] Orthopedic Surgery Diagnoses Closed fracture of distal end of right fibula with routine healing, unspecified fracture morphology, subsequent encounter Colleen Cooley MD [address] [phone] Jeanine Best MD [address] [place] [address] Status Reason Specialty Diagnoses / Procedures Referred By Contact Referred To Contact Authorized Patient Preference Physical Therapy Diagnoses Closed fracture of distal end of right fibula with routine healing, unspecified fracture morphology, subsequent encounter Sprain of right ankle, unspecified ligament, initial encounter Jeanine Best MD [address] [place] [address] Specialty Diagnoses / Procedures Referred By Contac t Referred To Contact Rehabilitation Diagnoses Sprain of anterior talofibular ligament of right ankle, initial encounter Acute right ankle pain Chris Brown, DPM [address] [place] [address] [facility] [address] [place] [address] Referral ID Status Reason Start Date Expiration Date V isits Requested Visits Authorized [id number] Authorized 03/23/2021 03/23/2022 1 1 Specialty Diagnoses / Procedures Referred By Contac t Referred To Contact Rehabilitation Diagnoses Ankle instability, right Sprain of anterior talofibular ligament of right ankle, subsequent encounter Chris Brown, DPM [address] [place] [address] [facility] [address] [place] [address] Referral ID Status Reason Start Date Expiration Date V isits Requested Visits Authorized [id number] Authorized 09/27/2021 09/27/2022 1 1 Specialty Diagnoses / Procedures Referred By Contac t Referred To Contact Neurology Diagnoses Bilateral hand pain Colleen Cooley MD [address] [place] [id number] Randy Pickard MD [address] [place] [phone] Referral ID Status Reason Start Date Expiration Date V isits Requested Visits Authorized [id number] Authorized 01/11/2022 01/11/2023 1 1 Specialty Diagnoses / Procedures Referred By Contac t Referred To Contact Radiology Diagnoses Bilateral hand pain Procedures MR Hand Right Without Contrast Colleen Cooley MD [address] [place] [phone] [address] Referral ID Status Reason Start Date Expiration Date V isits Requested Visits Authorized [id number] New Request 01/11/2022 01/11/2023 1 1 Specialty Diagnoses / Procedures Referred By Contac t Referred To Contact Cardiology Diagnoses Palpitation Teri Llanes, SERGER [address] [place] [address] [place] [address] Referral ID Status Reason Start Date Expiration Date V isits Requested Visits Authorized [id number] Authorized 05/25/2023 05/24/2024 1 1 Specialty Diagnoses / Procedures Referred By Contac t Referred To Contact Cardiology Diagnoses Palpitation Abnormal EKG Gaurav Verma MD [address] [phone] Referral ID Status Reason Start Date Expiration Date V isits Requested Visits Authorized [id number] Authorized 06/14/2023 06/13/2024 1 1 Specialty Diagnoses / Procedures Referred By Contac t Referred To Contact Cardiology Diagnoses Palpitation Abnormal EKG Procedures Extended Holter Monitor (3-7 days) Gaurav Verma MD [address] [phone] Referral ID Status Reason Start Date Expiration Date Visits Re quested Visits Authorized [id number] Closed 06/14/2023 06/13/2024 1 1 Specialty Diagnoses / Procedures Referred By Contac t Referred To Contact Cardiology Diagnoses Palpitation Abnormal EKG Procedures Echocardiogram complete Gaurav Verma MD [address] [phone] Referral ID Status Reason Start Date Expiration Date V isits Requested Visits Authorized [id number] Authorized 06/14/2023 06/13/2024 1 1 Chief Complaint NPV in office today referred by Teri Sage NP for rectal bleeding intermittently for the past fewyears, RLQ pain nausea after eating, occasional bloating, diarrhea. No prior colonoscopy. Patient has tried Imodium for the diarrhea which helps when taking it but when not taking it still has diarrhea. NPV in office today referred by Teri Sage NP for rectal bleeding intermittently for the past fewyears, RLQ pain nausea after eating, occasional bloating, diarrhea. No prior colonoscopy. Patient has tried Imodium for the diarrhea which helps when taking it but when not taking it still has diarrhea. Additional Source Comments INFORMATION SOURCE (unrecogn ized section and content) DATE CREATED AUTHOR AUTHOR'S ORGANIZ ATION 01/12/2019 [facility] DATE CREATED AUTHOR AUTHOR'S ORGANIZ ATION 02/07/2021 [facility] DATE CREATED AUTHOR AUTHOR'S ORGANIZ ATION 07/01/2021 [facility] DATE CREATED AUTHOR AUTHOR'S ORGANIZ ATION 11/13/2022 [facility] DATE CREATED AUTHOR AUTHOR'S ORGANIZ ATION 11/13/2022 [employer] DATE CREATED AUTHOR AUTHOR'S ORGANIZ ATION 11/21/2022 [facility] DATE CREATED AUTHOR AUTHOR'S ORGANIZ ATION 12/16/2022 [facility] DATE CREATED AUTHOR AUTHOR'S ORGANIZ ATION 07/27/2023 [facility] DATE CREATED AUTHOR AUTHOR'S ORGANIZ ATION 08/16/2023 [facility] DATE CREATED AUTHOR AUTHOR'S ORGANIZ ATION 08/17/2023 [facility] Reason for Visit (unrecogniz ed section and content) Status Reason Specialty Diagnoses / Procedures Referred By Contact Referred To Contact Closed Specialty Services Required/Patien t's Best Interest Orthopedic Surgery Diagnoses Closed fracture of distal end of right fibula with routine healing, unspecified fracture morphology, subsequent encounter Colleen Cooley MD [address] [place] [address] Jeanine Best MD [address] [place] [address] Reason Comments Ankle Injury Twisted right ankle 01/30/2021. Diagnosed with distal fibular fractures. Last x-rays taken on Monday in [place]. Reason Comments Follow-up Right ankle sprain. Wearing boot. States it is bothering her. Aching, tingling and throbbing. States her foot is shifting in the boot. Reason Onset Date Comments Medication Refill 05/09/2021 Reason Comments Results Patient is here to g o over MRI results. Reason Comments Pre-op Exam Patient is here for a history and physical. Reason Comments Post-op Postop right ankle. Reason Comments Post-op Post op right ankle. X-rays ordered for today. Reason Comments Other Hemorrhage of anus a nd rectum Reason Comments Establish Care Per Teri Llanes CNP for palpitations/h/o SVT Specialty Diagnoses / Procedures Referred By Rolando t Referred To Contact Cardiology Diagnoses Palpitation Teri Llanes CNP [address] [place] [address] [facility] Vandana Christie [facility] Vandana [place] [address] Referral ID Status Reason Start Date Expiration Date Visits Re quested Visits Authorized [id number] Closed 05/25/2023 05/24/2024 1 1 Care Teams (unrecognized sec tion and content) Kiln Hand Relationship Specialty Start Date End Date Teri Llanes CNP [address] [place] [phone] PCP - General Nurse Practitioner 02/22/21 Kiln Hand Relationship Specialty Start Date End Date Teri Llanes CNP [address] [place] [phone] PCP - General Nurse Practitioner 02/22/21 Kiln Hand Relationship Specialty Start Date End Date Teri Llanes CNP [address] [place] [phone] PCP - General Nurse Practitioner 02/22/21 Kiln Hand Relationship Specialty Start Date End Date Teri Llanes CNP [address] [place] [phone] PCP - General Nurse Practitioner 02/22/21 Kiln Hand Relationship Specialty Start Date End Date Teri Llanes CNP [address] [place] [phone] PCP - General Nurse Practitioner 02/22/21 Kiln Hand Relationship Specialty Start Date End Date Teri Llanes CNP [address] [place] [phone] PCP - General Nurse Practitioner 02/22/21 Kiln Hand Relationship Specialty Start Date End Date Teri Llanes CNP [address] [place] [phone] PCP - General Nurse Practitioner 02/22/21 Kiln Hand Relationship Specialty Start Date End Date Teri Llanes CNP [address] [place] [address] PCP - General Nurse Practitioner 02/22/21 Kiln Hand Relationship Specialty Start Date End Date Teri Llanes CNP [address] [place] [address] PCP - General Nurse Practitioner 02/22/21 Kiln Hand Relationship Specialty Start Date End Date Teri Llanes CNP [address] [place] [address] PCP - General Nurse Practitioner 02/22/21 Kiln Hand Relationship Specialty Start Date End Date Teri Llanes APRN-HANNAH [address] [place], [place] [phone] PCP - General 02/04/21 Kiln Hand Relationship Specialty Start Date End Date Teri Llanes CNP [address] [place], [place] [phone] PCP - General Nurse Practitioner 02/22/21 Kiln Hand Relationship Specialty Start Date End Date Teri Llanes CNP [address] [place], [place] [phone] PCP - General Nurse Practitioner 02/22/21 <item> Privacy Markings (unrecogniz ed section and content) Section Author: Darby Franco PROHIBITION ON REDISCLOSURE OF CONFIDENTIAL INFORMATION This notice accompanies a disclosure of information concerning a client made to you with the consent of such client. FOR RECORDS PERTAINING TO PATIENTS WHO ARE OR HAVE BEEN ENROLLED IN A CHEMICAL DEPENDENCY/SUBSTANCEABUSE PROGRAM, SOME INFORMATION MAY BE OMITTED. This clinical summary was aggregated from multiple sources. Caution should be exercised in using it in the provision of clinical care. This summary normalizes information from multiple sources, and as a consequence, information in this document may materially change the coding, format and clinical context of patient data. In addition, data may be omitted in some cases. CLINICAL DECISIONS SHOULD BE BASED ON THE PRIMARY CLINICAL RECORDS. [facility] [employer] provides no warranty or guarantee of the accuracy or completeness of information in this document.
== END | disposition home or self-care (01) ==
LOC: LABSPEC 07:21
PROVIDERS: PCP Nurse Practitioner Family; Referring Provider Obstetrics & Gynecology; Visit Provider Obstetrics & Gynecology
DX: L02.215 Cutaneous abscess of perineum (principal)
CPT/HCPCS: 87070; 87075; 87077; 87186; 87205